=== PATIENT | male | born 1945 | race Caucasian/White ===

== ENCOUNTER 2017-11-02 20:37 | Inpatient (IN) | payer OTHER, MEDICARE ==
[~2017-11-02] VITALS: Ht 165.1 cm; Wt 65.7 kg
[~2017-11-02 20:37] MED LIST: CHOL400C PO; OMEG1CAP81 PO; SIMV20TA2 PO
[2017-11-02] MEDS ORDERED: ONDANSETRON INJ 2 MG/ML 2 ML VIAL IV STA (21:34)
[2017-11-02] MEDS ORDERED: MoRPHine SULFATE 4 MG/ML 1 ML CARP\\VIAL IV STA (21:34)
[2017-11-02 21:58] LABS: BASO % 0.1 %; BASO ABS # 0.01 K/uL (0-0.2); EOS % 0.1 %; EOS ABS # 0.01 K/uL (0-0.5); HEMATOCRIT 46.8 % (42-52); HEMOGLOBIN 16.1 g/dL (14.0-18.0); IG# 0.03 K/uL (0.00-0.02); LYMPH ABS # 0.37 K/uL (1.2-3.4); MEAN CELL VOLUME 95.9 fL (80-100); MEAN CORPUSCULAR HGB CONC 34.4 g/dl (32-36); MEAN PLATELET VOLUME 11.6 fL (7.4-10.4); MONO % 4.3 %; MONO ABS # 0.53 K/uL (0.11-0.59); NEUT % 92.3 %; NEUT ABS # 11.42 K/uL (1.4-6.5); PLATELET COUNT 163 K/uL (130-400); RED CELL DISTRIBUTION WIDTH CV 13.1 % (11.5-14.5); RED CELL DISTRIBUTION WIDTH SD 45.5 fL (36.4-46.3); WHITE BLOOD COUNT 12.37 K/uL (4.8-10.8)
[2017-11-02 22:15] LABS: ALBUMIN 4.2 gm/dl (3.4-5.0); CALCIUM 9.8 mg/dl (8.5-10.1); CREATININE 1.07 mg/dl (0.60-1.40); POTASSIUM 3.5 mmol/L (3.5-5.1)
[2017-11-02 22:18] LABS: TOTAL PROTEIN 8.1 gm/dl (6.4-8.2)
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
[2017-11-02] MEDS ORDERED: ACETAMINOPHEN 325 MG TAB PO PRN (23:00)
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
[2017-11-02 23:50] VITALS: BP 130/85; PULSE 86; TEMP 36.9; O2SAT 96; Ht 165.1 cm; Wt 65.7 kg
[2017-11-03] MEDS: MoRPHine SULFATE 4 MG/ML 1 ML CARP\\VIAL IV PRN ×2 (00:01→05:55)
[2017-11-03] MEDS: ONDANSETRON INJ 2 MG/ML 2 ML VIAL IV PRN ×3 (00:41→14:18)
[2017-11-03] MEDS: D5NSS + 20MEQ KCL 1,000 ML IV SCH ×3 (01:19→20:38)
[2017-11-03] MEDS ORDERED: INFLUENZA VIRUS QUAD VACCINE 0.5 ML SYR IM. ONE (04:00)
[2017-11-03] MEDS ORDERED: INFLUENZA ADMINISTRATION CHARGE ONE (04:00)
--- NOTE | 2017-11-03 05:11 | NUR ---
ID/A: Pt. arrived in room#357-2 at about 2350. Alert and oriented x 4. Maintaining NPO except chips and sips as ordered. VSS with SpO2 of 96% on RA. D5NSS + 20 MEQ KCL infusing at 100 ml/hr to left AC vein. C/O pain in the abdomen, rated it at 6, managed with IV medication ordered. Denies nausea and vomiting at this time. Repositions self in bed. Ambulates to the bathroom with 1 person assist. Encouraged to call for assistance, call myles within reach.
[2017-11-03 06:18] LABS: BASO % 0.1 %; BASO ABS # 0.01 K/uL (0-0.2); EOS % 0.1 %; EOS ABS # 0.01 K/uL (0-0.5); HEMATOCRIT 44.7 % (42-52); HEMOGLOBIN 15.6 g/dL (14.0-18.0); IG# 0.02 K/uL (0.00-0.02); LYMPH % 8.4 %; LYMPH ABS # 0.73 K/uL (1.2-3.4); MEAN CELL VOLUME 95.9 fL (80-100); MEAN CORPUSCULAR HEMOGLOBIN 33.5 pg (25-34); MEAN CORPUSCULAR HGB CONC 34.9 g/dl (32-36); MEAN PLATELET VOLUME 12.2 fL (7.4-10.4); MONO % 6.4 %; MONO ABS # 0.56 K/uL (0.11-0.59); NEUT % 84.8 %; NEUT ABS # 7.41 K/uL (1.4-6.5); PLATELET COUNT 158 K/uL (130-400); RED CELL DISTRIBUTION WIDTH CV 13.1 % (11.5-14.5); RED CELL DISTRIBUTION WIDTH SD 45.2 fL (36.4-46.3); WHITE BLOOD COUNT 8.74 K/uL (4.8-10.8)
[2017-11-03 06:51] LABS: CALCIUM 9.4 mg/dl (8.5-10.1); POTASSIUM 4.4 mmol/L (3.5-5.1)
[2017-11-03 07:44] VITALS: BP 132/75; PULSE 67; TEMP 36.9; O2SAT 96
[2017-11-03 08:00] VITALS: O2SAT 96
[2017-11-03] MEDS: ACETAMINOPHEN IV 100 ML IV PRN ×2 (09:24→17:43)
--- NOTE | 2017-11-03 11:15 | NUR ---
Case Management- Met with patient in room. Patient is currently staying with his daughter. Patient is from [place] he drove up here five months ago with his and have been visiting. [facility] [place] [facility]. Per patient he has been utilizing the [facility] in [place] for care and prescriptions while here. His daughter lives in a two story home with one step to enter and approx thirteen steps between floors. He is independent with adls using a can for stabilization/walking. Patient denies falls, unsteadiness, or weakness. Patient still drives. He denies needs at this time planning to return home on discharge. Patient may benefit from pt/ot to ensure safety returning home. CM following
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
[2017-11-03 16:00] VITALS: BP 109/63; PULSE 67; TEMP 36.8; O2SAT 96
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
[2017-11-03] MEDS ORDERED: NURSING VERBAL MED ORDER ONE (17:00)
[2017-11-03] MEDS ORDERED: PANTOprazole INJ 40 MG in SYRINGE 0 ML IV ONE (17:15)
--- NOTE | 2017-11-03 17:45 | Progress Note ---
Medicine Progress Note Date & Time of Visit: Nov 03, 2017 at 13:09. Subjective 72 year old male with history of small bowel obstruction, multiple abdominal surgeries, dyslipidemia, presenting with abdominal pain. Found to have a partial SBO vs ileus on workup. Pt reports vomiting once this morning and has some persistent nausea and heartburn. Otherwise, he denies any symptoms. He is ambulatory. Objective Last 8 Hrs Date Time Temp Pulse Resp B/P (MAP) Pulse Ox O2 Delivery O2 Flow Rate FiO2 11/03/17 07:44 36.9 67 18 132/75 (94) 96 Room Air Physical Exam: GEN: WNWD, in no acute distress, alert and appropriate HEENT: NC/AT, normal sclerae, MMM CARDIO: reg rate, S1/2 heard without m/g/r LUNGS: CTA bilaterally, no crackles, rales or wheezes, good diaphragmatic excursion ABD: soft, non-tender, non-distended, no rebound or guarding, +BS, multiple scars with multiple incisional hernias. EXTREMITY: RP and DP palpable 2+ bilat, no LE swelling or edema, extremities are warm and well-perfused NEURO: CN 2-12 grossly intact MUSC: 5/5 strength throughout, no focal deficits SKIN: warm and dry Laboratory Results: 11/03/17 05:18 Red Blood Count 4.66, Mean Corpuscular Volume 95.9, Mean Corpuscular Hemoglobin 33.5, Mean Corpuscular Hemoglobin Concent 34.9, Mean Platelet Volume 12.2, Neutrophils (%) (Auto) 84.8, Lymphocytes (%) (Auto) 8.4, Monocytes (%) (Auto) 6.4, Eosinophils (%) (Auto) 0.1, Basophils (%) (Auto) 0.1, Neutrophils # (Auto) 7.41, Lymphocytes # (Auto) 0.73, Monocytes # (Auto) 0.56, Eosinophils # (Auto) 0.01, Basophils # (Auto) 0.01 11/03/17 05:18 Test 11/02/17 19:23 11/02/17 19:50 11/03/17 05:18 Urine Color DK YELLOW Urine Appearance CLOUDY (CLEAR) Urine pH 5.0 (4.5-7.5) Urine Specific [place] 1.031 (1.000-1.030) Urine Protein TRACE (NEG) Urine Glucose (UA) NEG (NEG) Urine Ketones 1+ (NEG) Urine Occult Blood NEG (NEG) Urine Nitrite NEG (NEG) Urine Bilirubin NEG (NEG) Urine Urobilinogen NEG (NEG) Urine Leukocyte Esterase NEG (NEG) Urine WBC (Auto) 1-5 /hpf (0-5) Urine RBC (Auto) 0-4 /hpf (0-4) Urine Hyaline Casts (Auto) 10-30 /lpf (0-5) Urine Epithelial Cells (Auto) 20-30 /lpf (0-5) Urine Bacteria (Auto) NEG (NEG) Urine Crystals CALCIUM OXALATE (NONE Total Bilirubin 2.1 mg/dl (0.2-1) Aspartate Amino Transf (AST/SGOT) 22 U/L (15-37) Alanine Aminotransferase (ALT/SGPT) 23 U/L (12-78) Alkaline Phosphatase 97 U/L (45-117) Total Protein 8.1 gm/dl (6.4-8.2) Albumin 4.2 gm/dl (3.4-5.0) Globulin 3.9 gm/dl (2.5-4.0) Albumin/Globulin Ratio 1.1 (0.9-2) Lipase 105 U/L (73-393) White Blood Count 8.74 K/uL (4.8-10.8) Red Blood Count 4.66 M/uL (4.7-6.1) Hemoglobin 15.6 g/dL (14.0-18.0) Hematocrit 44.7 % (42-52) Mean Corpuscular Volume 95.9 fL (80-100) Mean Corpuscular Hemoglobin 33.5 pg (25-34) Mean Corpuscular Hemoglobin Concent 34.9 g/dl (32-36) Platelet Count 158 K/uL (130-400) Mean Platelet Volume 12.2 fL (7.4-10.4) Neutrophils (%) (Auto) 84.8 % Lymphocytes (%) (Auto) 8.4 % Monocytes (%) (Auto) 6.4 % Eosinophils (%) (Auto) 0.1 % Basophils (%) (Auto) 0.1 % Neutrophils # (Auto) 7.41 K/uL (1.4-6.5) Lymphocytes # (Auto) 0.73 K/uL (1.2-3.4) Monocytes # (Auto) 0.56 K/uL (0.11-0.59) Eosinophils # (Auto) 0.01 K/uL (0-0.5) Basophils # (Auto) 0.01 K/uL (0-0.2) RDW Standard Deviation 45.2 fL (36.4-46.3) RDW Coefficient of Variation 13.1 % (11.5-14.5) Immature Granulocyte % (Auto) 0.2 % Immature Granulocyte # (Auto) 0.02 K/uL (0.00-0.02) Anion Gap 5.0 mmol/L (3-11) Est Creatinine Clear Calc Drug Dose 58.1 ml/min Estimated GFR () 86.8 Estimated GFR (Non- 74.9 BUN/Creatinine Ratio 19.2 (10-20) Calcium Level 9.4 mg/dl (8.5-10.1) Magnesium Level 2.1 mg/dl (1.8-2.4) Chemistry Specimen Hemolysis Last 24 Hours Test 11/02/17 19:23 11/02/17 19:50 11/03/17 05:18 Urine Color DK YELLOW Urine Appearance CLOUDY Urine pH 5.0 Urine Specific [place] 1.031 Urine Protein TRACE Urine Glucose (UA) NEG Urine Ketones 1+ Urine Occult Blood NEG Urine Nitrite NEG Urine Bilirubin NEG Urine Urobilinogen NEG Urine Leukocyte Esterase NEG Urine WBC (Auto) 1-5 /hpf Urine RBC (Auto) 0-4 /hpf Urine Hyaline Casts (Auto) 10-30 /lpf Urine Epithelial Cells (Auto) 20-30 /lpf Urine Bacteria (Auto) NEG Urine Crystals CALCIUM OXALATE White Blood Count 12.37 K/uL 8.74 K/uL Red Blood Count 4.88 M/uL 4.66 M/uL Hemoglobin 16.1 g/dL 15.6 g/dL Hematocrit 46.8 % 44.7 % Mean Corpuscular Volume 95.9 fL 95.9 fL Mean Corpuscular Hemoglobin 33.0 pg 33.5 pg Mean Corpuscular Hemoglobin Concent 34.4 g/dl 34.9 g/dl Platelet Count 163 K/uL 158 K/uL Mean Platelet Volume 11.6 fL 12.2 fL Neutrophils (%) (Auto) 92.3 % 84.8 % Lymphocytes (%) (Auto) 3.0 % 8.4 % Monocytes (%) (Auto) 4.3 % 6.4 % Eosinophils (%) (Auto) 0.1 % 0.1 % Basophils (%) (Auto) 0.1 % 0.1 % Neutrophils # (Auto) 11.42 K/uL 7.41 K/uL Lymphocytes # (Auto) 0.37 K/uL 0.73 K/uL Monocytes # (Auto) 0.53 K/uL 0.56 K/uL Eosinophils # (Auto) 0.01 K/uL 0.01 K/uL Basophils # (Auto) 0.01 K/uL 0.01 K/uL RDW Standard Deviation 45.5 fL 45.2 fL RDW Coefficient of Variation 13.1 % 13.1 % Immature Granulocyte % (Auto) 0.2 % 0.2 % Immature Granulocyte # (Auto) 0.03 K/uL 0.02 K/uL Sodium Level 137 mmol/L 138 mmol/L Potassium Level 3.5 mmol/L 4.4 mmol/L Chloride Level 99 mmol/L 102 mmol/L Carbon Dioxide Level 32 mmol/L 32 mmol/L Anion Gap 5.0 mmol/L 5.0 mmol/L Blood Urea Nitrogen 20 mg/dl 19 mg/dl Creatinine 1.07 mg/dl 1.00 mg/dl Est Creatinine Clear Calc Drug Dose 54.3 ml/min 58.1 ml/min Estimated GFR () 80.0 86.8 Estimated GFR (Non- 69.0 74.9 BUN/Creatinine Ratio 18.4 19.2 Random Glucose 131 mg/dl 140 mg/dl Calcium Level 9.8 mg/dl 9.4 mg/dl Magnesium Level 2.3 mg/dl 2.1 mg/dl Total Bilirubin 2.1 mg/dl Aspartate Amino Transf (AST/SGOT) 22 U/L Alanine Aminotransferase (ALT/SGPT) 23 U/L Alkaline Phosphatase 97 U/L Total Protein 8.1 gm/dl Albumin 4.2 gm/dl Globulin 3.9 gm/dl Albumin/Globulin Ratio 1.1 Lipase 105 U/L Chemistry Specimen Hemolysis Assessment & Plan 72 year old male with history of small bowel obstruction, multiple abdominal surgeries, dyslipidemia, presenting with abdominal pain. Found to have a partial SBO vs ileus on workup. Pt reports vomiting once this morning and has some persistent nausea and heartburn. Otherwise, he denies any symptoms. He is ambulatory. 1 Abdominal pain 2.2 partial SBO with h/o adhesions from multiple abdominal surgeries in the past. Cont conservative management, NPO, IVF, scheuduling his Zofran to stay ahead of the nausea. No pain reported but PRN morphine available. Apprec surgery input. NGT placement if he decompensates overnight. 2. GERD-on omeprazole at home and is having some reflux-ordered Protonix 40 IV daily with first dose now. DVT proph-Lovenox Full Code LIVES WITH DAUGHTER WHILE IN [place] ALSO LIVES IN [place], [place], FOLLOWS UP WITH [facility] AND [facility] [place] Pranav Lerma Hospitalist Consultants: [facility] Current Inpatient Medications: Current Inpatient Medications Medications (Trade) Dose Ordered Sig/Ilia Route Start Time Stop Time Status Last Admin Dose Admin Potassium Chloride/Dextrose/ Sod Cl 1,000 ml @ 100 mls/hr Q10H IV 11/03/17 00:30 12/03/17 00:29 11/03/17 09:23 100 MLS/HR Morphine Sulfate (MoRPHine SULFATE INJ) 3 mg Q6H PRN IV 11/02/17 23:00 11/16/17 22:59 11/03/17 05:55 3 MG Ondansetron HCl (Zofran Inj) 4 mg Q6H PRN IV 11/02/17 23:00 12/02/17 22:59 11/03/17 08:06 4 MG Acetaminophen 100 ml @ 400 mls/hr Q8H PRN IV 11/03/17 09:15 12/03/17 09:14 11/03/17 09:24 400 MLS/HR
[2017-11-03] MEDS: ONDANSETRON INJ 2 MG/ML 2 ML VIAL IV SCH (20:34)
[2017-11-03 23:25] VITALS: BP 168/84; PULSE 66; TEMP 36.9; O2SAT 94
[2017-11-04] MEDS: MoRPHine SULFATE 4 MG/ML 1 ML CARP\\VIAL IV PRN ×3 (01:51→15:35)
[2017-11-04] MEDS: ONDANSETRON INJ 2 MG/ML 2 ML VIAL IV SCH ×4 (01:51→20:25)
--- NOTE | 2017-11-04 04:27 | NUR ---
ID: pt is alert and oriented x4. Lungs clear on RA. NG patent draining brown colored liquid. Voiding in urinal without difficulty. Pain controlled with IV pain medication. IV fluids infusing as per order. Plan for discharge is uncertain at this time.
[2017-11-04] MEDS: D5NSS + 20MEQ KCL 1,000 ML IV SCH ×2 (06:12→16:09)
[2017-11-04 06:24] LABS: INR 1.1 (0.9-1.1)
[2017-11-04 06:54] LABS: CALCIUM 8.7 mg/dl (8.5-10.1); CREATININE 0.95 mg/dl (0.60-1.40); POTASSIUM 3.9 mmol/L (3.5-5.1)
[2017-11-04 07:22] VITALS: BP 162/92; PULSE 65; TEMP 36.6; O2SAT 96
[2017-11-04] MEDS: PANTOprazole INJ 40 MG in SYRINGE 0 ML IV SCH (07:36)
--- NOTE | 2017-11-04 08:40 | Surgery Progress Note ---
Surgery Progress Note Date of Service Nov 04, 2017. Subjective + feeling well last nigyht pt had NG tube in, now pt feels better, NG tube- 700ml, not pass gas yet, Objective Vital Signs: Date Time Temp Pulse Resp B/P (MAP) Pulse Ox O2 Delivery O2 Flow Rate FiO2 11/04/17 07:22 36.6 65 12 162/92 (115) 96 Room Air 11/04/17 01:02 Room Air 11/03/17 23:25 36.9 66 16 168/84 (112) 94 Room Air 11/03/17 16:00 96 Room Air 11/03/17 16:00 36.8 67 18 109/63 (78) 96 Room Air General Appearance: WD/WN, no apparent distress Head: normocephalic Neck: supple, no JVD Respiratory/Chest: chest non-tender, lungs clear, normal breath sounds, no respiratory distress Cardiovascular: regular rate, rhythm, no edema, no gallop, no JVD, no murmur Abdomen: normal bowel sounds, non tender, non distended, soft, no organomegaly Extremities: normal range of motion, non-tender, normal inspection Laboratory Results: Results Past 24 Hours Test 11/04/17 05:44 Range/Units Prothrombin Time 11.3 9.0-12.0 SECONDS Prothromb Time International Ratio 1.1 0.9-1.1 Sodium Level 139 136-145 mmol/L Potassium Level 3.9 3.5-5.1 mmol/L Chloride Level 106 98-107 mmol/L Carbon Dioxide Level 30 21-32 mmol/L Anion Gap 3.0 3-11 mmol/L Blood Urea Nitrogen 21 7-18 mg/dl Creatinine 0.95 0.60-1.40 mg/dl Est Creatinine Clear Calc Drug Dose 61.1 ml/min Estimated GFR () 92.3 Estimated GFR (Non- 79.7 BUN/Creatinine Ratio 21.8 10-20 Random Glucose 109 70-99 mg/dl Calcium Level 8.7 8.5-10.1 mg/dl Magnesium Level 2.0 1.8-2.4 mg/dl Assessment & Plan pt is doing better, continue treatment, will F/U
[2017-11-04] MEDS: ENOXAPARIN 40 MG/0.4 ML SYR SQ SCH (09:24)
--- NOTE | 2017-11-04 11:37 | NUR ---
Reviewed chart. Pt is here visiting daughter. He normally lives in [place] with his . Pt is independent with ADL's. He plans to return to his daughter's home at discharge. Case Management will follow.
[2017-11-04 15:12] VITALS: BP 158/84; PULSE 80; TEMP 37; O2SAT 95
--- NOTE | 2017-11-04 17:28 | Progress Note ---
Subjective Date of Service: Nov 04, 2017. Subjective Pt evaluation today including: conversation w/ patient, physical exam, lab review, review of studies, review of inpatient medication list Saw/examined the patient in room 357 NG tube in place abdominal place improved nausea/vomiting improved no diarrhea Problem List Medical Problems: (1) Small bowel obstruction Status: Acute Review of Systems Constitutional: No fever, No chills Respiratory: No shortness of breath Cardiac: No chest pain Abdomen: + pain, + nausea, + vomiting, No diarrhea, No constipation, No GI bleeding Medications Current Inpatient Medications Medications (Trade) Dose Ordered Sig/Ilia Route Start Time Stop Time Status Last Admin Dose Admin Potassium Chloride/Dextrose/ Sod Cl 1,000 ml @ 100 mls/hr Q10H IV 11/03/17 00:30 12/03/17 00:29 11/04/17 16:09 100 MLS/HR Morphine Sulfate (MoRPHine SULFATE INJ) 3 mg Q6H PRN IV 11/02/17 23:00 11/16/17 22:59 11/04/17 15:35 3 MG Acetaminophen 100 ml @ 400 mls/hr Q8H PRN IV 11/03/17 09:15 12/03/17 09:14 11/03/17 17:43 400 MLS/HR Ondansetron HCl (Zofran Inj) 4 mg Q6H IV 11/03/17 20:00 12/02/17 19:59 11/04/17 14:13 4 MG Pantoprazole Sodium 40 mg/ Syringe 10 ml @ 5 mls/min DAILY@0800 IV 11/04/17 08:00 12/04/17 07:59 11/04/17 07:36 5 MLS/MIN Enoxaparin Sodium (Lovenox Inj) 40 mg QAM SQ 11/04/17 09:00 12/04/17 08:59 11/04/17 09:24 40 MG Objective Vital Signs Date Time Temp Pulse Resp B/P (MAP) Pulse Ox O2 Delivery O2 Flow Rate FiO2 11/04/17 15:12 37.0 80 18 158/84 (108) 95 Room Air 11/04/17 07:23 Room Air 11/04/17 07:22 36.6 65 12 162/92 (115) 96 Room Air 11/04/17 01:02 Room Air 1/1/18 23:25 36.9 66 16 168/84 (112) 94 Room Air Physical Exam General Appearance: no apparent distress, + pertinent finding (NGT in place) Respiratory/Chest: no respiratory distress, no accessory muscle use Abdomen: normal bowel sounds, non tender, soft Laboratory Results Last 24 Hours Test 11/04/17 05:44 Prothrombin Time 11.3 SECONDS Prothromb Time International Ratio 1.1 Sodium Level 139 mmol/L Potassium Level 3.9 mmol/L Chloride Level 106 mmol/L Carbon Dioxide Level 30 mmol/L Anion Gap 3.0 mmol/L Blood Urea Nitrogen 21 mg/dl Creatinine 0.95 mg/dl Est Creatinine Clear Calc Drug Dose 61.1 ml/min Estimated GFR () 92.3 Estimated GFR (Non- 79.7 BUN/Creatinine Ratio 21.8 Random Glucose 109 mg/dl Calcium Level 8.7 mg/dl Magnesium Level 2.0 mg/dl Assessment and Plan This is a 72 year old male with a PMH of recurrent SBO, multiple abdominal surgeries, HLD presents with nausea/vomiting and found to have partial SBO Partial SBO Abdominal Radiograph suggests partial SBO conservative management NGT, NPO, IVFs added once passing flatus, will remove NGT appreciate general surgery input DVT ppx Lovenox FULL CODE
[2017-11-04] MEDS: ACETAMINOPHEN IV 100 ML IV PRN (19:32)
[2017-11-04 23:03] VITALS: BP 132/67; PULSE 53; TEMP 36.7; O2SAT 97
[2017-11-05] VITALS (7 sets, daily range): BP systolic 125–146; BP diastolic 64–82; PULSE 50–65; TEMP 36.6–36.9; O2SAT 95–98
--- NOTE | 2017-11-05 00:37 | NUR ---
ID: Pt is alert and oriented x4. Lungs clear on RA. Tolerating sips and chips. NG patent draining green colored drainage. Pain controlled with IV pain medication. Independent OOB. Voiding in the urinal without and difficulty.
[2017-11-05] MEDS: D5NSS + 20MEQ KCL 1,000 ML IV SCH ×3 (01:57→22:08)
[2017-11-05] MEDS: ONDANSETRON INJ 2 MG/ML 2 ML VIAL IV SCH ×3 (01:57→14:36)
[2017-11-05 08:20] LABS: HEMATOCRIT 40.5 % (42-52); HEMOGLOBIN 13.6 g/dL (14.0-18.0); MEAN CELL VOLUME 97.8 fL (80-100); MEAN CORPUSCULAR HEMOGLOBIN 32.9 pg (25-34); MEAN CORPUSCULAR HGB CONC 33.6 g/dl (32-36); MEAN PLATELET VOLUME 11.6 fL (7.4-10.4); PLATELET COUNT 127 K/uL (130-400); RED CELL DISTRIBUTION WIDTH CV 13.4 % (11.5-14.5); RED CELL DISTRIBUTION WIDTH SD 47.9 fL (36.4-46.3); WHITE BLOOD COUNT 4.77 K/uL (4.8-10.8)
[2017-11-05] MEDS: PANTOprazole INJ 40 MG in SYRINGE 0 ML IV SCH (08:37)
[2017-11-05] MEDS: ACETAMINOPHEN IV 100 ML IV PRN ×2 (08:38→17:36)
[2017-11-05] MEDS: ENOXAPARIN 40 MG/0.4 ML SYR SQ SCH (08:39)
[2017-11-05 09:19] LABS: CALCIUM 8.4 mg/dl (8.5-10.1); CREATININE 0.89 mg/dl (0.60-1.40); POTASSIUM 3.8 mmol/L (3.5-5.1)
--- NOTE | 2017-11-05 09:44 | Surgery Progress Note ---
Surgery Progress Note Date of Service Nov 05, 2017. Subjective Post OP Day: HD # 3 + feeling well, + ambulating, + flatus, + pain controlled (with IV Tylenol), No chest pain, No SOB, No bowel movement, No nausea, No vomiting Objective Vital Signs: Date Time Temp Pulse Resp B/P (MAP) Pulse Ox O2 Delivery O2 Flow Rate FiO2 11/05/17 09:00 95 Room Air 11/05/17 08:45 Room Air 11/05/17 07:58 36.8 58 18 140/82 (101) 95 Room Air 11/05/17 07:10 36.8 65 18 146/81 (102) 96 Room Air 11/05/17 00:00 Room Air 11/04/17 23:03 36.7 53 18 132/67 (88) 97 Room Air 11/04/17 20:16 Room Air 11/04/17 15:12 37.0 80 18 158/84 (108) 95 Room Air Physical Exam: nasogastric drainage (dark brown output) General Appearance: WD/WN, no apparent distress Head: normocephalic, atraumatic Neck: trachea midline Respiratory/Chest: lungs clear, normal breath sounds, no respiratory distress, no accessory muscle use Cardiovascular: regular rate, rhythm, no murmur Abdomen: normal bowel sounds, non distended, soft, no organomegaly, no pulsatile mass, + tenderness (mild generalized tenderness, no guarding, rigidity , or peritonitis) Laboratory Results: Results Past 24 Hours Test 11/05/17 07:24 Range/Units White Blood Count 4.77 4.8-10.8 K/uL Red Blood Count 4.14 4.7-6.1 M/uL Hemoglobin 13.6 14.0-18.0 g/dL Hematocrit 40.5 42-52 % Mean Corpuscular Volume 97.8 80-100 fL Mean Corpuscular Hemoglobin 32.9 25-34 pg Mean Corpuscular Hemoglobin Concent 33.6 32-36 g/dl RDW Standard Deviation 47.9 36.4-46.3 fL RDW Coefficient of Variation 13.4 11.5-14.5 % Platelet Count 127 130-400 K/uL Mean Platelet Volume 11.6 7.4-10.4 fL Sodium Level 139 136-145 mmol/L Potassium Level 3.8 3.5-5.1 mmol/L Chloride Level 107 98-107 mmol/L Carbon Dioxide Level 28 21-32 mmol/L Anion Gap 4.0 3-11 mmol/L Blood Urea Nitrogen 13 7-18 mg/dl Creatinine 0.89 0.60-1.40 mg/dl Est Creatinine Clear Calc Drug Dose 65.3 ml/min Estimated GFR () 99.0 Estimated GFR (Non- 85.4 BUN/Creatinine Ratio 14.9 10-20 Random Glucose 84 70-99 mg/dl Calcium Level 8.4 8.5-10.1 mg/dl Magnesium Level 1.9 1.8-2.4 mg/dl Assessment & Plan Partial Small bowel obstruction- resolving - passing flatus, + bowel movement after evaluation this am - vitals stable - no leukocytosis - minimal abdominal pain Plan: Discontinue NGT Start clear liquids advised patient to go slow, advance as tolerated Continue current pain management Continue IV zofran as needed encouraged continued ambulation Dr. Caban has seen patient , agrees with above
--- NOTE | 2017-11-05 12:59 | NUR ---
Pt screened for NPO/Clears > 3 days. Process Plan entered. Noted NG tube discontinued and Pt started on clear liquids. When able, continue to advance diet from clear liquids. Will continue to monitor Pt's ability to have diet advanced and provide recommendations, as needed.
[2017-11-05] MEDS ORDERED: ONDANSETRON INJ 2 MG/ML 2 ML VIAL IV PRN (14:45)
[2017-11-05] MEDS ORDERED: NURSING VERBAL MED ORDER ONE (14:45)
--- NOTE | 2017-11-05 15:36 | NUR ---
Reviewed chart. Spoke with Pt. He plans to return to his daughter's house at discharge. He is independent with ADL's. Pt denies d/c needs at this time. Case management will follow.
--- NOTE | 2017-11-05 16:27 | Progress Note ---
Subjective Date of Service: Nov 05, 2017. Subjective Pt evaluation today including: conversation w/ patient, physical exam, lab review, review of studies, review of inpatient medication list Saw/examined the patient in room 357 He is doing well, passing gas, +BM NGT removed tolerating clears Problem List Medical Problems: (1) Small bowel obstruction Status: Acute Review of Systems Constitutional: No fever, No chills Respiratory: No shortness of breath Cardiac: No chest pain Abdomen: No pain, No nausea, No vomiting, No diarrhea Medications Current Inpatient Medications Medications (Trade) Dose Ordered Sig/Ilia Route Start Time Stop Time Status Last Admin Dose Admin Potassium Chloride/Dextrose/ Sod Cl 1,000 ml @ 100 mls/hr Q10H IV 11/03/17 00:30 12/03/17 00:29 11/05/17 12:11 100 MLS/HR Morphine Sulfate (MoRPHine SULFATE INJ) 3 mg Q6H PRN IV 11/02/17 23:00 11/16/17 22:59 11/04/17 15:35 3 MG Acetaminophen 100 ml @ 400 mls/hr Q8H PRN IV 11/03/17 09:15 12/03/17 09:14 11/05/17 08:38 400 MLS/HR Pantoprazole Sodium 40 mg/ Syringe 10 ml @ 5 mls/min DAILY@0800 IV 11/04/17 08:00 12/04/17 07:59 11/05/17 08:37 5 MLS/MIN Enoxaparin Sodium (Lovenox Inj) 40 mg QAM SQ 11/04/17 09:00 12/04/17 08:59 11/05/17 08:39 40 MG Ondansetron HCl (Zofran Inj) 4 mg Q6 PRN IV 11/05/17 14:45 12/05/17 14:44 Objective Vital Signs Date Time Temp Pulse Resp B/P (MAP) Pulse Ox O2 Delivery O2 Flow Rate FiO2 11/05/17 15:15 Room Air 11/05/17 15:10 36.6 57 16 129/81 (97) 97 Room Air 11/05/17 13:53 36.9 54 18 128/76 (93) 98 Room Air 11/05/17 12:13 36.9 54 18 126/73 (90) 98 Room Air 1/3/18 09:00 95 Room Air 11/05/17 08:45 Room Air 11/05/17 07:58 36.8 58 18 140/82 (101) 95 Room Air 11/05/17 07:10 36.8 65 18 146/81 (102) 96 Room Air 11/05/17 00:00 Room Air 11/04/17 23:03 36.7 53 18 132/67 (88) 97 Room Air 11/04/17 20:16 Room Air Physical Exam General Appearance: no apparent distress Respiratory/Chest: no respiratory distress, no accessory muscle use Abdomen: normal bowel sounds, non tender, soft Laboratory Results Last 24 Hours Test 11/05/17 07:24 White Blood Count 4.77 K/uL Red Blood Count 4.14 M/uL Hemoglobin 13.6 g/dL Hematocrit 40.5 % Mean Corpuscular Volume 97.8 fL Mean Corpuscular Hemoglobin 32.9 pg Mean Corpuscular Hemoglobin Concent 33.6 g/dl RDW Standard Deviation 47.9 fL RDW Coefficient of Variation 13.4 % Platelet Count 127 K/uL Mean Platelet Volume 11.6 fL Sodium Level 139 mmol/L Potassium Level 3.8 mmol/L Chloride Level 107 mmol/L Carbon Dioxide Level 28 mmol/L Anion Gap 4.0 mmol/L Blood Urea Nitrogen 13 mg/dl Creatinine 0.89 mg/dl Est Creatinine Clear Calc Drug Dose 65.3 ml/min Estimated GFR () 99.0 Estimated GFR (Non- 85.4 BUN/Creatinine Ratio 14.9 Random Glucose 84 mg/dl Calcium Level 8.4 mg/dl Magnesium Level 1.9 mg/dl Assessment and Plan This is a 72 year old male with a PMH of recurrent SBO, multiple abdominal surgeries, HLD presents with nausea/vomiting and found to have partial SBO Partial SBO 1/3 NGT removed +BM, +flatus clears will advance in AM appreciate general surgery input 1/2 Abdominal Radiograph suggests partial SBO conservative management NGT, NPO, IVFs added once passing flatus, will remove NGT appreciate general surgery input DVT ppx Lovenox FULL CODE
--- NOTE | 2017-11-06 03:12 | NUR ---
ID NOTE: Alert and oriented x4. Tolerating a clear liquid diet. Ambulates independently. IV fluids infusing as ordered. Voiding without difficulty. Pain controlled with IV medication. Discharge plans uncertain at this time.
[2017-11-06 07:27] VITALS: BP 139/82; PULSE 57; TEMP 36.8; O2SAT 96
[2017-11-06 07:45] VITALS: O2SAT 96
[2017-11-06] MEDS: D5NSS + 20MEQ KCL 1,000 ML IV SCH (07:45)
[2017-11-06] MEDS: PANTOprazole INJ 40 MG in SYRINGE 0 ML IV SCH (07:45)
[2017-11-06 07:46] LABS: CREATININE 0.82 mg/dl (0.60-1.40); POTASSIUM 3.7 mmol/L (3.5-5.1)
[2017-11-06] MEDS: ACETAMINOPHEN IV 100 ML IV PRN ×2 (07:46→16:00)
[2017-11-06] MEDS: ENOXAPARIN 40 MG/0.4 ML SYR SQ SCH (08:43)
--- NOTE | 2017-11-06 09:36 | Surgery Progress Note ---
Surgery Progress Note Date of Service Nov 06, 2017. Subjective Post OP Day: HD # 4 + feeling well, + ambulating, + bowel movement, + flatus, + pain controlled, + diet (Tolerated clear liquids), No complaints, No nausea, No vomiting Objective Vital Signs: Date Time Temp Pulse Resp B/P (MAP) Pulse Ox O2 Delivery O2 Flow Rate FiO2 11/06/17 07:27 36.8 57 16 139/82 (101) 96 Room Air 11/05/17 23:30 Room Air 11/05/17 22:53 36.8 50 16 125/64 (84) 96 Room Air 11/05/17 15:15 Room Air 11/05/17 15:10 36.6 57 16 129/81 (97) 97 Room Air 11/05/17 13:53 36.9 54 18 128/76 (93) 98 Room Air 11/05/17 12:13 36.9 54 18 126/73 (90) 98 Room Air General Appearance: WD/WN, no apparent distress Head: normocephalic, atraumatic Neck: trachea midline Respiratory/Chest: no respiratory distress, no accessory muscle use Laboratory Results: Results Past 24 Hours Test 11/06/17 06:57 Range/Units Sodium Level 141 136-145 mmol/L Potassium Level 3.7 3.5-5.1 mmol/L Chloride Level 109 98-107 mmol/L Carbon Dioxide Level 29 21-32 mmol/L Anion Gap 3.0 3-11 mmol/L Blood Urea Nitrogen 6 7-18 mg/dl Creatinine 0.82 0.60-1.40 mg/dl Est Creatinine Clear Calc Drug Dose 70.8 ml/min Estimated GFR () 102.4 Estimated GFR (Non- 88.3 BUN/Creatinine Ratio 7.3 10-20 Random Glucose 97 70-99 mg/dl Calcium Level 9.0 8.5-10.1 mg/dl Magnesium Level 2.0 1.8-2.4 mg/dl Assessment & Plan Partial Small bowel obstruction- resolved - passing flatus, + bowel movement - vitals stable - minimal abdominal pain Plan: Advance diet to full liquids this am and then as tolerated Continue current pain management as needed Continue IV zofran as needed encouraged continued ambulation From surgical standpoint okay to discharge home once tolerates full liquids. May follow up with Dr. Caban in 2 weeks if still in the area. Our services signing off thank you for involving us in the care of this patient. Dr. Caban has seen patient , agrees with above
--- NOTE | 2017-11-06 10:17 | Progress Note ---
Subjective Date of Service: Nov 06, 2017. Subjective Pt evaluation today including: conversation w/ patient, physical exam, lab review, review of studies, conversation w/ career development consultant, review of inpatient medication list Saw/examined the patient in room 357 He is doing well today, no abdominal pain, passing gas, +BM no fevers/chills, no nausea/vomiting/diarrhea Problem List Medical Problems: (1) Small bowel obstruction Status: Acute Review of Systems Constitutional: No fever, No chills Respiratory: No shortness of breath Cardiac: No chest pain Abdomen: No pain, No nausea, No vomiting, No diarrhea Heme: No abnormal bleeding/bruising Medications Current Inpatient Medications Medications (Trade) Dose Ordered Sig/Ilia Route Start Time Stop Time Status Last Admin Dose Admin Potassium Chloride/Dextrose/ Sod Cl 1,000 ml @ 100 mls/hr Q10H IV 11/03/17 00:30 12/03/17 00:29 11/06/17 07:45 100 MLS/HR Morphine Sulfate (MoRPHine SULFATE INJ) 3 mg Q6H PRN IV 11/02/17 23:00 11/16/17 22:59 11/04/17 15:35 3 MG Acetaminophen 100 ml @ 400 mls/hr Q8H PRN IV 11/03/17 09:15 12/03/17 09:14 11/06/17 07:46 400 MLS/HR Pantoprazole Sodium 40 mg/ Syringe 10 ml @ 5 mls/min DAILY@0800 IV 11/04/17 08:00 12/04/17 07:59 11/06/17 07:45 5 MLS/MIN Enoxaparin Sodium (Lovenox Inj) 40 mg QAM SQ 11/04/17 09:00 12/04/17 08:59 11/06/17 08:43 40 MG Ondansetron HCl (Zofran Inj) 4 mg Q6 PRN IV 11/05/17 14:45 12/05/17 14:44 Objective Vital Signs Date Time Temp Pulse Resp B/P (MAP) Pulse Ox O2 Delivery O2 Flow Rate FiO2 11/06/17 07:45 96 Room Air 11/06/17 07:27 36.8 57 16 139/82 (101) 96 Room Air 11/05/17 23:30 Room Air 11/05/17 22:53 36.8 50 16 125/64 (84) 96 Room Air 11/05/17 15:15 Room Air 11/05/17 15:10 36.6 57 16 129/81 (97) 97 Room Air 11/05/17 13:53 36.9 54 18 128/76 (93) 98 Room Air 11/05/17 12:13 36.9 54 18 126/73 (90) 98 Room Air Physical Exam General Appearance: no apparent distress Abdomen: normal bowel sounds, non tender, soft Laboratory Results Last 24 Hours Test 11/06/17 06:57 Sodium Level 141 mmol/L Potassium Level 3.7 mmol/L Chloride Level 109 mmol/L Carbon Dioxide Level 29 mmol/L Anion Gap 3.0 mmol/L Blood Urea Nitrogen 6 mg/dl Creatinine 0.82 mg/dl Est Creatinine Clear Calc Drug Dose 70.8 ml/min Estimated GFR () 102.4 Estimated GFR (Non- 88.3 BUN/Creatinine Ratio 7.3 Random Glucose 97 mg/dl Calcium Level 9.0 mg/dl Magnesium Level 2.0 mg/dl Assessment and Plan This is a 72 year old male with a PMH of recurrent SBO, multiple abdominal surgeries, HLD presents with nausea/vomiting and found to have partial SBO Partial SBO / NGT removed, tolerating clears diet advanced to full liquid d/c once tolerating full liquids after lunch outpatient f/u in 2 weeks with general surgery / NGT removed +BM, +flatus clears will advance in AM appreciate general surgery input 1/2 Abdominal Radiograph suggests partial SBO conservative management NGT, NPO, IVFs added once passing flatus, will remove NGT appreciate general surgery input DVT ppx Lovenox FULL CODE
--- NOTE | 2017-11-06 10:19 | Discharge Instructions ---
Discharge Instructions Date of Service Nov 06, 2017. Admission Reason for Admission: Partial Small Bowel Obstruction Discharge Discharge Diagnosis / Problem: Partial Small Bowel Obstruction - resolved Discharge Goals Goal(s): Decrease discomfort, Improve function, Diagnostic testing, Therapeutic intervention Activity Recommendations Activity Limitations: resume your previous activity . Instructions / Follow-Up Instructions / Follow-Up Please follow-up with Dr. Caban (general surgery) in 2 weeks Follow-up with your primary care as scheduled Current Hospital Diet Patient's current hospital diet: Full Liquid Diet Discharge Diet Recommended Diet: Low Fiber Diet Pending Studies Studies pending at discharge: no Medical Emergencies . Who to Call and When: Medical Emergencies: If at any time you feel your situation is an emergency, please call 911 immediately. . Non-Emergent Contact Non-Emergency issues call your: Primary Care Provider, Surgeon . . "Provider Documentation" section prepared by Trinidad Ulrich. . VTE Core Measure Inpt VTE Proph given/why not?: Enoxaparin (Lovenox)SQ, SCD's
--- NOTE | 2017-11-06 10:20 | Discharge Summary ---
Discharge Summary Date of Service Nov 06, 2017. Discharge Summary Admission Date: Nov 02, 2017 at 22:53 Discharge Date: Nov 06, 2017 Discharge Disposition: Home Principal Diagnosis: Partial Small Bowel Obstruction Consultations: Gen Surg-Arsh Medication Reconciliation Continued Medications: Cholecalciferol (Vitamin D3 400) 400 Unit Cap 400 MG PO DAILY Simvastatin (Zocor) 20 Mg Tab 10 MG PO QPM, TAB Admission Information HPI (per Admitting provider): 72 year old male with history of small bowel obstruction, multiple abdominal surgeries, dyslipidemia, presenting with abdominal pain starting this evening. Patient states he was doing fine until this evening while watching TV when he suddenly developed right sided abdominal pain, pressure, which then moved to involve his whole abdomen. He had 2 episodes of vomiting, non bloody, bilious fluid at home. Denies fever/chills, chest pain, dyspnea. As he is familiar with bowel obstruction symptoms, patient was brought to the ER. At the ER, KUB xray showed possible ileus vs. partial small bowel obstruction. He was given Morphine and Zofran IV. On exam, patient seen resting, comfortable, states he is feeling somewhat improved compared to admission. Denies any other active symptom. Physical Exam (per Admitting): General Appearance: WD/WN, no apparent distress Head: normocephalic, atraumatic Eyes: normal inspection, PERRL, EOMI, sclerae normal ENT: normal ENT inspection, hearing grossly normal, pharynx normal Neck: supple, no adenopathy, thyroid normal, no JVD, trachea midline Respiratory/Chest: chest non-tender, lungs clear, normal breath sounds, no respiratory distress, no accessory muscle use Cardiovascular: regular rate, rhythm, no edema, no JVD, no murmur, normal peripheral pulses Abdomen/GI: + pertinent finding ((+) midline surgical scars, non distended, hypoactibe bowel sounds, soft, nontender) Back: normal inspection, no CVA tenderness Extremities/Musculoskelatal: normal inspection, no calf tenderness, no pedal edema, normal range of motion Neurologic/Psych: stator winder II-XII nml as tested, no motor/sensory deficits, alert , normal mood/affect, oriented x 3 Skin: normal color, warm/dry, no rash Lymphatic: no adenopathy Hospital Course This is a 72 year old male with a PMH of recurrent SBO, multiple abdominal surgeries, HLD presents with nausea/vomiting and found to have partial SBO Partial SBO 11/06 NGT removed, tolerating clears diet advanced to full liquid d/c once tolerating full liquids after lunch outpatient f/u in 2 weeks with general surgery 11/05 NGT removed +BM, +flatus clears will advance in AM appreciate general surgery input 11/04 Abdominal Radiograph suggests partial SBO conservative management NGT, NPO, IVFs added once passing flatus, will remove NGT appreciate general surgery input DVT ppx Lovenox FULL CODE Total time spent on discharge = 20 minutes This includes examination of the patient, discharge planning, medication reconciliation, and communication with other providers. Discharge Instructions Please follow-up with Dr. Caban (general surgery) in 2 weeks Follow-up with your primary care as scheduled
[2017-11-06 10:31] VITALS: BP 139/82; PULSE 57; TEMP 36.8; O2SAT 96
--- NOTE | 2017-11-06 11:01 | NUR ---
Reviewed chart. Pt is independent in the room. Pt is for discharge today. He denies d/c needs. Please reconsult case Management if further needs arise.
[2017-11-06 15:00] VITALS: BP 125/75; PULSE 63; TEMP 36.8; O2SAT 98
== END 2017-11-06 17:46 | disposition home or self-care (01) | DRG 390 ==
LOC: C.EDB 20:38 → C.MSW 22:53 → EDBEDREQSVC 22:55 → EDBEDREQ 22:58 → ENRESERV 23:08
PROVIDERS: ADMIT Internal Medicine; ATTEND Family Medicine
DX: K56.600 Partial intestinal obstruction, unspecified as to cause (principal); K21.9 Gastro-esophageal reflux disease without esophagitis; E78.5 Hyperlipidemia, unspecified; Z51.81 Encounter for therapeutic drug level monitoring; Z79.899 Other long term (current) drug therapy; Z98.890 Other specified postprocedural states; Z87.19 Personal history of other diseases of the digestive system

== ENCOUNTER 2020-06-21 15:25 | Inpatient (IN) ==
--- OUTSIDE RECORDS SUMMARY | 2020-06-21 15:27 | External Medical Summary | Continuity of Care Document ---
:1945 Author Name Niurka Cedeno, Provider Address Unavailable Unavailable , Care Team Providers Name Role Phone Aldo Cedeno, Theodor Unavailable [email or web address] [email or web address], UNKNOWN Unavailable Unavailable Problems Active medical history not documented Allergies and Adverse Reactions Allergy history not documented Medications Medications not documented Procedures Procedures not documented Immunizations Immunizations not documented Plan of Treatment Planned Observations Planned Goals not documented Results No Known Results Results not documented
--- OUTSIDE RECORDS SUMMARY | 2020-06-21 15:28 | External Medical Summary | Continuity of Care Document ---
:1945 Author Name Niurka Cedeno, Provider Address Unavailable Unavailable , Care Team Providers Name Role Phone Aldo Cedeno, Theodor Unavailable [email or web address] [email or web address], UNKNOWN Unavailable Unavailable Problems Active medical history not documented Allergies and Adverse Reactions Allergy history not documented Medications Medications not documented Procedures Procedures not documented Immunizations Immunizations not documented Plan of Treatment Planned Observations Planned Goals not documented Results No Known Results Results not documented
[2020-06-21] MEDS ORDERED: SODIUM CHLORIDE 0.9% 1000ML 1,000 ML IV SCH (15:45)
--- NOTE | 2020-06-21 15:48 | Emergency Department Note ---
Impression & Plan Small bowel obstruction, Abdominal pain, Vomiting ED Provider Note NAME: KOLBY GAN AGE: 75 SEX: M : 1945 ARRIVES VIA: Walk-In INFORMANT: Patient, ED PROVIDER(S): Richard Watson DO CHIEF COMPLAINT: Abdominal pain HPI: The patient is a 75-year-old male who presented to the emergency department for an evaluation of abdominal pain. The patient describes upper and diffuse abdominal pain which began approximately 3 to 4 days ago. He states the pain is slowly been worsening. He states the pain is intermittent. He states the pain worsens with food and relieved with rest as well as vomiting. He has had similar episodes in the past. His last episode was 3 to 4 years ago and he had a bowel obstruction. The patient states he was able to manage the bowel obstruction nonsurgically but was admitted to the hospital at that time. He did not see his family doctor for the symptoms. He denies having any nausea or v omiting currently. He last vomited prior to arrival. He denies having any chest pain or difficulty breathing. He denies having any dysuria frequency or fever. The patient states his pain was moderate to severe earlier today. He did take 1 of his tramadol pain pills for the pain and it significantly improved. ROS: See above HPI for pertinent positives & negatives. A total of 10 systems reviewed and were otherwise negative. PAST MEDICAL HISTORY: See Below PAST SURGICAL HISTORY: See Below FAMILY HISTORY: See Below SOCIAL HISTORY: See Below HOME MEDICATIONS: See Below ALLERGIES: See Below VITALS: See Below PHYSICAL EXAMINATION: GENERAL: Patient is awake alert in no acute distress patient is resting comfortably and showing no signs of anxiety EYES: The conjunctivae are clear. The pupils are round and reactive. EARS, NOSE, MOUTH AND THROAT: The nose is without any evidence of any deformity. NECK: The neck is nontender and supple. RESPIRATORY: Normal respiratory effort is noted there is no evidence of wheezing rhonchi or rales CARDIOVASCULAR: Regular rate and rhythm noted there no murmurs rubs or gallops normal S1 normal S2. GASTROINTESTINAL: The abdomen is moderately distended and diffusely tender. There is right lower quadrant tenderness to palpation which is moderate. MUSCULOSKELETAL/EXTREMITIES: There is no evidence of gross deformity full range of motion is noted in the hips and shoulders. SKIN: There is no obvious evidence of any rash. There are no petechiae, pallor or cyanosis noted. NEUROLOGIC: Patient is awake alert and oriented x3 strength is symmetric patellar reflexes are 2+ bilaterally MEDICAL DECISION MAKING: The patient is a 75-year-old male who presented to the emergency department for an evaluation of abdominal pain and vomiting. The patient is a history of bowel obstruction. He was found to have signs of bowel obstruction on CT the abdomen and pelvis. The patient was treated with IV fluids and IV antibiotics. He was also treated with IV antiemetics. An NG tube was ordered. I discussed his case with the on-call general surgeon. I also discussed this case with the on-call [facility] hospitalist group. They have agreed to evaluate the patient in the emergency department for further management and disposition. Triage Nursing notes reviewed. Prior medical records reviewed Vital Signs: reviewed and remarkable for no significant abnormalities Differential diagnosis: Gastroenteritis, food borne illness, infections, appendicitis, diverticulitis, inflammatory bowel disease, obstruction, GI bleed, biliary pathology, volvulus, as well as other pathologies. ER treatment provided: See below Diagnostics interpreted by me: ECG: none Cardiac Monitoring: An order was placed for continuous cardiac monitoring. The monitor shows a rate of 98 with sinus rhythm. Laboratory studies: As stated above and show below. Imaging studies: See below Consultation(s): 1800: I discussed this case with Dr. Caban who is on-call for general surgery. He asked that the patient be admitted to medicine and he will follow along in consultation. 191: The [facility] hospitalist was contacted regarding the patient. Past Med/Surg History Social History Smoking Status: Never smoker Feels Safe at Home: Yes Allergies Allergies Allergy/AdvReac Type Severity Reaction Status Date / Time No Known Allergies Allergy Unverified 06/21/20 16:44 Home Meds Home Medications Medication Instructions Recorded Confirmed acetaminophen [Tylenol] 325 mg PO QID 06/21/20 06/21/20 cholecalciferol (vitamin D3) 25 mcg PO BID 06/21/20 06/21/20 [Vitamin D3] docusate sodium 100 mg PO DAILY 06/21/20 06/21/20 multivitamin 1 tab PO DAILY 06/21/20 06/21/20 omeprazole 80 mg PO DAILY 06/21/20 06/21/20 simvastatin 10 mg PO HS 06/21/20 06/21/20 tramadol 50 mg PO Q6H PRN 06/21/20 06/21/20 Results & Data (ED) Vital Signs Vital Signs - 24 hr 06/21/20 15:27 06/21/20 17:13 06/21/20 17:27 Temperature 36.9 C Temperature Source Oral Pulse Rate 99 H 75 82 Respiratory Rate 20 17 17 Respiratory Effort / Characteristics Non-Labored Respiratory Depth Normal Blood Pressure 126/84 130/73 Blood Pressure Mean 98 87 Pulse Oximetry 93 Oxygen Delivery Method Room Air Sepsis Recent Fever Within 48 Hours No Sepsis New/Unexplained Change in Mental Status N/A Sepsis Action Taken by Nursing No Action Required 06/21/20 17:30 06/21/20 17:40 06/21/20 17:50 Temperature Temperature Source Pulse Rate 78 72 80 Respiratory Rate 22 17 17 Respiratory Effort / Characteristics Respiratory Depth Blood Pressure Blood Pressure Mean Pulse Oximetry Oxygen Delivery Method Sepsis Recent Fever Within 48 Hours Sepsis New/Unexplained Change in Mental Status Sepsis Action Taken by Nursing 06/21/20 18:00 06/21/20 18:10 06/21/20 18:20 Temperature Temperature Source Pulse Rate 73 91 H Respiratory Rate 20 24 20 Respiratory Effort / Characteristics Respiratory Depth Blood Pressure 135/74 Blood Pressure Mean 94 Pulse Oximetry Oxygen Delivery Method Sepsis Recent Fever Within 48 Hours Sepsis New/Unexplained Change in Mental Status Sepsis Action Taken by Retirement Medications Current Medication List: was personally reviewed by me Laboratory Data Attestation: I reviewed the patient's lab results. Result diagrams: 06/21/20 16:25 06/21/20 16:25 Lab Results 06/21/20 06/21/20 06/21/20 Range/Units 16:25 16:25 16:30 WBC 8.29 (4.8-10.8) K/uL RBC 5.16 (4.7-6.1) M/uL Hgb 17.1 (14.0-18.0) g/dL POC Hgb 18.0 (14.0-18.0) g/dl Hct 49.0 (42-52) % POC Hct 53 H (42-52) % MCV 95.0 (80-100) fL MCH 33.1 (25-34) pg MCHC 34.9 (32-36) g/dL RDW Std Deviation 45.4 (36.4-46.3) fL RDW Coeff of Khris 13.1 (11.5-14.5) % Plt Count 189 (130-400) K/uL MPV 11.8 H (7.4-10.4) fL Immature Gran % (Auto) 0.1 % Neut % (Auto) 80.0 % Lymph % (Auto) 10.0 % [place] % (Auto) 9.8 % Eos % (Auto) 0.0 % Baso % (Auto) 0.1 % Neut # (Auto) 6.63 H (1.4-6.5) K/uL Lymph # (Auto) 0.83 L (1.2-3.4) K/uL [place] # (Auto) 0.81 H (0.11-0.59) K/uL Eos # (Auto) 0.00 (0-0.5) K/uL Baso # (Auto) 0.01 (0-0.2) K/uL Immature Gran # (Auto) 0.01 (0.00-0.02) K/uL POC Sodium 139 (135-144) mmol/L Sodium 138 (136-145) mmol/L POC Potassium 3.7 (3.3-5.0) mmol/L Potassium 4.0 (3.5-5.1) mmol/L POC Chloride 97 L (101-112) mmol/L Chloride 100 (98-107) mmol/L Carbon Dioxide 30 (21-32) mmol/L POC Total CO2 31 (24-31) mmol/L Anion Gap 8.0 (3-11) POC Anion Gap 16.0 (16-25) mmol/L POC BUN 30 H (7-18) mg/dl BUN 26 H (7-18) mg/dl Creatinine 1.80 H (0.6-1.4) mg/dl POC Creatinine 1.7 H (0.6-1.3) mg/dl Est Cr Clr Drug Dosing Not Reportable Est GFR ( Amer) 41.7 Est GFR (Non-Af Amer) 36.0 BUN/Creatinine Ratio 14.6 (10-20) Glucose 115 H (70-99) mg/dl POC Glucose (other) 122 H (70-99) mg/dl Calcium 10.1 (8.5-10.1) mg/dl POC Ioniz Calcium Sebastian 1.22 (1.12-1.32) mmol/l Total Bilirubin 2.6 H (0.2-1) mg/dl AST 28 (15-37) U/L ALT 29 (12-78) U/L Alkaline Phosphatase 91 (45-117) U/L Total Protein 8.7 H (6.4-8.2) gm/dl Albumin 3.7 (3.4-5.0) gm/dl Globulin 5.0 H (2.5-4.0) gm/dl Albumin/Globulin Ratio 0.7 L (0.9-2) Lipase 57 L (73-393) U/L Administered Medications Discontinued Medications Sodium Chloride (Nss 1000ml) 1,000 mls @ 999 mls/hr IV .Q1H1M QUIN Stop: 06/21/20 16:45 Last Infusion: 06/21/20 17:47 Dose: 0 mls/hr Documented by: [id number] Admin: 06/21/20 16:37 Dose: 999 mls/hr Documented by: [id number] Piperacillin Sod/Tazobactam Sod (Zosyn) 4.5 gm in 120 mls @ 240 mls/hr IV NOW ONE Stop: 06/21/20 17:46 Last Admin: 06/21/20 18:55 Dose: 240 mls/hr Documented by: [id number] Sodium Chloride (Nss 1000ml) 1,000 mls @ 999 mls/hr IV .Q1H1M ONE Stop: 06/21/20 18:18 Last Admin: 06/21/20 17:59 Dose: 999 mls/hr Documented by: [id number] Promethazine HCl (Phenergan) 6.25 mg in 50.25 mls @ 201 mls/hr IV NOW STA Stop: 06/21/20 18:12 Last Infusion: 06/21/20 18:28 Dose: 0 mls/hr Documented by: [id number] Admin: 06/21/20 18:03 Dose: 201 mls/hr Documented by: [id number] Ioversol (Ioversol 100ml) 93 ml IV ONCE ONE Stop: 06/21/20 16:57 Last Admin: 06/21/20 16:57 Dose: 93 ml Documented by: [id number] Ondansetron HCl (Ondansetron Inj 2 Mg/Ml 2 Ml Vial) 4 mg IV NOW STA Stop: 06/21/20 15:38 Last Admin: 06/21/20 17:13 Dose: 4 mg Documented by: [id number] Imaging Data Radiologist's Impression: ABDOMEN AND PELVIS CT WITH IV CONTRAST CT DOSE: 676.81 mGy.cm HISTORY: Acute generalized abdominal pain with history of small bowel obstruction. hx of OBS TECHNIQUE: Multiaxial CT images of the abdomen and pelvis were performed following the IV administration of 93 cc of Optiray 320, A dose lowering te chnique was utilized adhering to the principles of ALARA. COMPARISON STUDY: CT abdomen and pelvis 01/05/2014 FINDINGS: Mild linear subsegmental bibasilar atelectasis. There is no pneumatosis or pneum operitoneum. The imaged inferior cardiac chambers are unremarkable with coronary artery calcifications. Spleen, pancreas and adrenal glands are unremarkable. Cholecystectomy. Unremarkable liver. Patency of the hepatic and portal veins. Kidneys are unremarkable and enhance symmetrically. Partially decompressed urinary bladder. Dependent hyperdense material within the urinary bladder suggestive of probable contrast. Prostamegaly. Calcified plaque of the abdominal aorta without aneurysm. No adenopathy. Air and fluid-filled moderately distended stomach. High-grade small bowel obstruction with transition point noted involving a loop of jejunum within the central anterior abdomen, image 217 series 5. This is within this same site of obstruction seen on study from 2013. Decompressed small bowel loops are seen distally. There is reactive interloop edema. Mild colonic diverticulosis. Multiple moderate sized ventral abdominal wall hernias redemonstrated containing mesenteric fat and portions of nonobstructed large and small bowel. The appendix is not visualized and may be surgically absent. Punctate metallic density foci project over the right hip and gluteal tissues. No acute fracture. IMPRESSION: 1. High-grade small bowel obstruction with transition point involving a loop of jejunum within the anterior mid abdomen, likely secondary to small bowel adhesions. This appears to be the site of obstruction described on the study from 2013. 2. Multiple ventral abdominal wall hernias contain loops of large and small bowel. No associated obstruction caused by the hernias. 3. No pneumatosis or pneumoperitoneum. 4. Additional findings as above. ACT 112: Negative or not required by law. The above report was generated using voice recognition software. It may contain grammatical, syntax or spelling errors. Electronically signed by: Moose Oconnell M.D. 06/21/2020 5:34 PM Dictated: 06/21/20 1724 Transcribed: 06/21/20 1724 Blood Pressure Blood Pressure Findings: Normal blood pressure Discharge Plan Visit Data Chief Complaint: Abdominal Pain Stated Complaint: ABDOMINAL PAIN HX BLOCKAGES ED Provider: Richard Watson Discharge Problem: Small bowel obstruction, Abdominal pain, Vomiting Patient Disposition: Being Evaluated by Hospitalist Condition: Good Forms Stand Alone Forms: My [facility] Prescriptions Prescriptions: No Action multivitamin Tablet 1 tab PO DAILY RF: 0 acetaminophen [Tylenol] 325 mg Tablet 325 mg PO QID RF: 0 omeprazole 40 mg Capsule,Delayed Release(Dr/Ec) 80 mg PO DAILY RF: 0 tramadol 50 mg Tablet 50 mg PO Q6H PRN (Reason: Pain) RF: 0 simvastatin 20 mg Tablet 10 mg PO HS RF: 0 docusate sodium 100 mg Capsule 100 mg PO DAILY RF: 0 cholecalciferol (vitamin D3) [Vitamin D3] 25 mcg (1,000 unit) Capsule 25 mcg PO BID RF: 0 Referrals Referrals: PCP,NO [Primary Care Provider] - Discharge Problem: Abdominal pain Qualifiers: Abdominal location: generalized Qualified Code(s): R10.84 - Generalized abdominal pain Vomiting Qualifiers: Vomiting type: unspecified Vomiting Intractability: non-intractable Nausea presence: with nausea Qualified Code(s): R11.2 - Nausea with vomiting, unspecified
[2020-06-21 16:35] LABS: Basophils # (auto) 0.01 K/uL (0-0.2); Basophils % (auto) 0.1 %; Hemoglobin 17.1 g/dL (14.0-18.0); Immature Granulocytes # (auto) 0.01 K/uL (0.00-0.02); Immature Granulocytes % (auto) 0.1 %; Lymphocytes # (auto) 0.83 K/uL (1.2-3.4); Mean Corpuscular Hemoglobin 33.1 pg (25-34); Mean Corpuscular Hgb Conc 34.9 g/dL (32-36); Mean Platelet Volume 11.8 fL (7.4-10.4); Monocytes # (auto) 0.81 K/uL (0.11-0.59); Monocytes % (auto) 9.8 %; Neutrophils # (auto) 6.63 K/uL (1.4-6.5); Platelet Count 189 K/uL (130-400); RDW Coefficient of Variation 13.1 % (11.5-14.5); RDW Standard Deviation 45.4 fL (36.4-46.3); Red Blood Count 5.16 M/uL (4.7-6.1); White Blood Count 8.29 K/uL (4.8-10.8)
[2020-06-21] MEDS: ONDANSETRON INJ 2 MG/ML 2 ML VIAL IV STA ×2 (16:38→17:13)
[2020-06-21 16:43] LABS: iSTAT Creatinine 1.7 mg/dl (0.6-1.3); iSTAT Ionized Calcium 1.22 mmol/l (1.12-1.32); iSTAT Potassium 3.7 mmol/L (3.3-5.0)
[2020-06-21 16:51] LABS: Alanine Aminotransferase 29 U/L (12-78); Albumin Level 3.7 gm/dl (3.4-5.0); Aspartate Aminotransferase 28 U/L (15-37); BUN Creatinine Ratio 14.6 (10-20); Blood Urea Nitrogen 26 mg/dl (7-18); Calcium 10.1 mg/dl (8.5-10.1); Carbon Dioxide 30 mmol/L (21-32); Chloride 100 mmol/L (98-107); Est GFR (African American) 41.7; Glucose 115 mg/dl (70-99); Lipase 57 U/L (73-393); Sodium 138 mmol/L (136-145)
[2020-06-21 16:54] LABS: Albumin Globulin Ratio 0.7 (0.9-2); Alkaline Phosphatase 91 U/L (45-117); Bilirubin,Total 2.6 mg/dl (0.2-1); Total Protein 8.7 gm/dl (6.4-8.2)
[2020-06-21] MEDS ORDERED: IOVERSOL 100ml IV ONE (16:56)
[2020-06-21] MEDS ORDERED: PIPERACILL/TAZOBAC CONSULT ACTIVE PRN ×2 (17:17→21:58)
[2020-06-21] MEDS ORDERED: PIPERACILLIN/TAZOBACTAM 4.5 GM/120 ML BAG IV ONE (17:17)
[2020-06-21] MEDS ORDERED: SODIUM CHLORIDE 0.9% 1000ML 1,000 ML IV ONE (17:18)
--- NOTE | 2020-06-21 17:35 | CT Scan Report ---
ABDOMEN AND PELVIS CT WITH IV CONTRAST CT DOSE: 676.81 mGy.cm HISTORY: Acute generalized abdominal pain with history of small bowel obstruction. hx of OBS TECHNIQUE: Multiaxial CT images of the abdomen and pelvis were performed following the IV administrat ion of 93 cc of Optiray 320, A dose lowering technique was utilized adhering to the principles of AL KE. COMPARISON STUDY: CT abdomen and pelvis 01/05/2014 FINDINGS: Mild linear subsegmental bibasilar atelectasis. There is no pneumatosis or pneumoperitoneum. The imag ed inferior cardiac chambers are unremarkable with coronary artery calcifications. Spleen, pancreas and adrenal glands are unremarkable. Cholecystectomy. Unremarkable liver. Patency of the hepatic and portal veins. Kidneys are unremarkable and enhance symmetrically. Partially decompre ssed urinary bladder. Dependent hyperdense material within the urinary bladder suggestive of probable contrast. Prostamegaly. Calcified plaque of the abdominal aorta without aneurysm. No adenopathy. Air and fluid-filled moderately distended stomach. High-grade small bowel obstruction with transition point noted involving a loop of jejunum within the central anterior abdomen, image 217 series 5. Thi s is within this same site of obstruction seen on study from 2013. Decompressed small bowel loops are seen distally. There is reactive interloop edema. Mild colonic diverticulosis. Multiple moderate siz ed ventral abdominal wall hernias redemonstrated containing mesenteric fat and portions of nonobstruc anne large and small bowel. The appendix is not visualized and may be surgically absent. Punctate meta llic density foci project over the right hip and gluteal tissues. No acute fracture. IMPRESSION: 1. High-grade small bowel obstruction with transition point involving a loop of jejunum within the an terior mid abdomen, likely secondary to small bowel adhesions. This appears to be the site of obstruc tion described on the study from 2013. 2. Multiple ventral abdominal wall hernias contain loops of large and small bowel. No associated obst ruction caused by the hernias. 3. No pneumatosis or pneumoperitoneum. 4. Additional findings as above. ACT 112: Negative or not required by law. The above report was generated using voice recognition software. It may contain grammatical, syntax o r spelling errors. Electronically signed by: Moose Oconnell M.D. 06/21/2020 5:34 PM
[2020-06-21] MEDS ORDERED: PROMETHAZINE 6.25 MG/50.25 ML BAG IV STA (17:58)
[2020-06-21] MEDS ORDERED: PROMETHAZINE 6.25 MG/50.25 ML BAG IV ONE (18:30)
--- NOTE | 2020-06-21 18:30 | Surgery Consultation ---
Date of Consultation June 21, 2020 Assessment & Plan (1) Abdominal pain: pt is a 75 years old male who presents to Er with one day history right side abdominal pain with nausea and vomiting, IMP: SBO, Plan, no emergent surgery indication now, I agree with that hospitalist will admit pt to hospital for conservative treatment first, NPO, IV fluid, NG tube, control pain, KUB and labs in the morning, will F/U, D/W possible surgery treatment if pt's symptoms are getting worse, pt understood, he agrees with the plan, I answered all questions, will F/U, Thanks, (2) Small bowel obstruction: History of Present Illness History of Present Illness CHIEF COMPLAINT: Abdominal pain HPI: The patient is a 75-year-old male who presented to the emergency department for an evaluation of abdominal pain. The patient describes upper and diffuse abdominal pain which began approximately 3 to 4 days ago. He states the pain is slowly been worsening. He states the pain is intermittent. He states the pain worsens with food and relieved with rest as well as vomiting. He has had similar episodes in the past. His last episode was 3 to 4 years ago and he had a bowel obstruction. The patient states he was able to manage the bowel obstruction nonsurgically but was admitted to the hospital at that time. He did not see his family doctor for the symptoms. He denies having any nausea or vomiting currently. He last vomited prior to arrival. He denies having any chest pain or difficulty breathing. He denies having any dysuria frequency or fever. The patient states his pain was moderate to severe earlier today. He did take 1 of his tramadol pain pills for the pain and it significantly improved. I ( Loyda Caban MD ) got a call for consult SBO, I reviewed pt's H/P, labs, CT scan with pt, pt is still have some abdominal pain on right side, pt had same symptoms 2 years ago, pt had conservative treatment, pt was doing fine, ROS: See above HPI for pertinent positives & negatives. A total of 10 systems reviewed and were otherwise negative. PAST MEDICAL HISTORY: See Below PAST SURGICAL HISTORY: See Below FAMILY HISTORY: See Below SOCIAL HISTORY: See Below HOME MEDICATIONS: See Below ALLERGIES: See Below Allergies Allergy/AdvReac Type Severity Reaction Status Date / Time No Known Allergies Allergy Unverified 06/21/20 16:44 Home Medications Home Medications Medication Instructions Recorded Confirmed Type acetaminophen [Tylenol] 325 mg PO QID 06/21/20 06/21/20 History cholecalciferol (vitamin D3) 25 mcg PO BID 06/21/20 06/21/20 History [Vitamin D3] docusate sodium 100 mg PO DAILY 06/21/20 06/21/20 History multivitamin 1 tab PO DAILY 06/21/20 06/21/20 History omeprazole 80 mg PO DAILY 06/21/20 06/21/20 History simvastatin 10 mg PO HS 06/21/20 06/21/20 History tramadol 50 mg PO Q6H PRN 06/21/20 06/21/20 History Patient History Social History Smoking Status: Never smoker Feels Safe at Home: Yes Review of Systems Review of Systems: All systems reviewed & are unremarkable except as noted in HPI & below Constitutional: as per Subjective / HPI Eyes: as per Subjective / HPI Ear, Nose, Mouth, Throat: as per Subjective / HPI Respiratory: as per Subjective / HPI Cardiovascular: as per Subjective / HPI Gastrointestinal: as per Subjective / HPI S/P cholecystectomy, bowel surgery Genitourinary: + as per Subjective / HPI Musculoskeletal: as per Subjective / HPI Integumentary: as per Subjective / HPI Neurologic: as per Subjective / HPI Psychiatric: as per Subjective / HPI Endocrine: as per Subjective / HPI Hematologic / Lymphatic: as per Subjective / HPI Allergy / Immunological: as per Subjective / HPI Physical Exam Constitutional: WD/WN, vitals as above well developed and well nourished Eyes: PERRL, conjunctivae normal, anicteric sclerae ENMT: external ear and nose normal, oropharynx normal Neck: trachea midline, no thyromegaly Respiratory: normal respiratory effort, lungs clear to auscultation Cardiovascular: Rate/Rhythm: regular rate and regular rhythm Heart Sounds: normal S1 and normal S2 Gastrointestinal (Abdomen): normal bowel sounds, soft, nontender, no hepa tosplenomegaly soft, mild tenderness at right side abdomen, middle line scar, no rebound pain, BS +, no distend Musculoskeletal: no cyanosis or clubbing, extremities motor strength 5/5 Skin: no rashes, warm and dry Neurologic: patellar DTR's 2+ bilat, sensation intact Psychiatric: Orientation: alert and oriented x 3 Results & Data ([facility]) Vital Signs (Past 12 Hours) Vital Signs Temp Pulse Resp BP Pulse Ox 06/21/20 17:27 82 17 06/21/20 17:13 75 17 130/73 06/21/20 15:27 36.9 C 99 H 20 126/84 93 Laboratory Results Abnormal lab results 06/21/20 06/21/20 06/21/20 Range/Units 16:25 16:25 16:30 POC Hct 53 H (42-52) % MPV 11.8 H (7.4-10.4) fL Neut # (Auto) 6.63 H (1.4-6.5) K/uL Lymph # (Auto) 0.83 L (1.2-3.4) K/uL [place] # (Auto) 0.81 H (0.11-0.59) K/uL POC Chloride 97 L (101-112) mmol/L POC BUN 30 H (7-18) mg/dl BUN 26 H (7-18) mg/dl Creatinine 1.80 H (0.6-1.4) mg/dl POC Creatinine 1.7 H (0.6-1.3) mg/dl Glucose 115 H (70-99) mg/dl POC Glucose (other) 122 H (70-99) mg/dl Total Bilirubin 2.6 H (0.2-1) mg/dl Total Protein 8.7 H (6.4-8.2) gm/dl Globulin 5.0 H (2.5-4.0) gm/dl Albumin/Globulin Ratio 0.7 L (0.9-2) Lipase 57 L (73-393) U/L Diagnostic Findings ABDOMEN AND PELVIS CT WITH IV CONTRAST CT DOSE: 676.81 mGy.cm HISTORY: Acute generalized abdominal pain with history of small bowel obstruction. hx of OBS TECHNIQUE: Multiaxial CT images of the abdomen and pelvis were performed following the IV administration of 93 cc of Optiray 320, A dose lowering technique was utilized adhering to the principles of ALARA. COMPARISON STUDY: CT abdomen and pelvis 01/05/2014 FINDINGS: Mild linear subsegmental bibasilar atelectasis. There is no pneumatosis or p neumoperitoneum. The imaged inferior cardiac chambers are unremarkable with coronary artery calcifications. Spleen, pancreas and adrenal glands are unremarkable. Cholecystectomy. Unremarkable liver. Patency of the hepatic and portal veins. Kidneys are unremarkable and enhance symmetrically. Partially decompressed urinary bladder. Dependent hyperdense material within the urinary bladder suggestive of probable contrast. Prostamegaly. Calcified plaque of the abdominal aorta without aneurysm. No adenopathy. Air and fluid-filled moderately distended stomach. High-grade small bowel obstruction with transition point noted involving a loop of jejunum within the central anterior abdomen, image 217 series 5. This is within this same site of obstruction seen on study from 2013. Decompressed small bowel loops are seen distally. There is reactive interloop edema. Mild colonic diverticulosis. Multiple moderate sized ventral abdominal wall hernias redemonstrated containing mesenteric fat and portions of nonobstructed large and small bowel. The appendix is not visualized and may be surgically absent. Punctate metallic density foci project over the right hip and gluteal tissues. No acute fracture. IMPRESSION: 1. High-grade small bowel obstruction with transition point involving a loop of jejunum within the anterior mid abdomen, likely secondary to small bowel adhesions. This appears to be the site of obstruction described on the study from 2013. 2. Multiple ventral abdominal wall hernias contain loops of large and small bowel. No associated obstruction caused by the hernias. 3. No pneumatosis or pneumoperitoneum. 4. Additional findings as above. (1) Abdominal pain Abdominal location: generalized Qualified Code(s): R10.84 - Generalized abdominal pain
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
[2020-06-21] MEDS ORDERED: ACETAMINOPHEN 1,000 MG/100 ML VIAL IV STA (20:13)
[2020-06-21 21:14] LABS: Appearance Urine Cloudy (Clear); Bacteria Urine Automated Negative (Negative); Blood Urine Negative (Negative); Color Urine Dark Yellow; Epithelial Cell Urine Auto >30 /lpf (0-5); Glucose Urine UA Negative (Negative); Ketones Urine Trace (Negative); Leukocyte Esterase Urine Trace (Negative); Nitrite Urine Positive (Negative); Protein Urine 1+ (Negative); Specific Gravity Urine 1.029 (1.000-1.030); Urobilinogen Urine Negative (Negative)
[2020-06-21 21:16] LABS: Bilirubin Urine Negative (Negative); Ictotest Urine Negative (Negative)
[2020-06-21 21:25] LABS: Cast Urine Automated >30 /lpf (0-5)
[2020-06-21] MEDS ORDERED: ONDANSETRON INJ 2 MG/ML 2 ML VIAL IV PRN (21:58)
[2020-06-21] MEDS ORDERED: PROMETHAZINE HCL 6.25 MG in SODIUM CHLORIDE 0.9% 50 ML IV PRN (21:58)
[2020-06-21] MEDS: POTASSIUM CHLORIDE 30 MEQ in SODIUM CHLORIDE 0.9% 1000ML 1,000 ML IV SCH (22:29)
[2020-06-21] MEDS ORDERED: PATIENT'S HEIGHT AND/OR WEIGHT NEEDED SCH (22:30)
[2020-06-22] MEDS ORDERED: HYDROmorphone INJ 0.5 MG/0.5 ML SYR IV STA (00:38)
[2020-06-22] MEDS: PIPERACILLIN/TAZOBACTAM 3.375 GM in DEXTROSE 5% 100 ML IV SCH ×2 (02:40→10:53)
[2020-06-22] MEDS: POTASSIUM CHLORIDE 30 MEQ in SODIUM CHLORIDE 0.9% 1000ML 1,000 ML IV SCH ×3 (06:35→23:12)
[2020-06-22] MEDS: ACETAMINOPHEN 1,000 MG/100 ML VIAL IV PRN ×2 (06:40→23:22)
[2020-06-22 07:34] LABS: Basophils # (auto) 0.01 K/uL (0-0.2); Basophils % (auto) 0.2 %; Eosinophils # (auto) 0.05 K/uL (0-0.5); Eosinophils % (auto) 0.9 %; Hemoglobin 14.9 g/dL (14.0-18.0); Lymphocytes # (auto) 0.56 K/uL (1.2-3.4); Lymphocytes % (auto) 10.4 %; Mean Corpuscular Hemoglobin 33.2 pg (25-34); Mean Corpuscular Hgb Conc 33.9 g/dL (32-36); Mean Platelet Volume 11.5 fL (7.4-10.4); Monocytes # (auto) 0.67 K/uL (0.11-0.59); Monocytes % (auto) 12.4 %; Neutrophils # (auto) 4.12 K/uL (1.4-6.5); Neutrophils % (auto) 76.1 %; Platelet Count 158 K/uL (130-400); RDW Coefficient of Variation 13.5 % (11.5-14.5); RDW Standard Deviation 48.4 fL (36.4-46.3); Red Blood Count 4.49 M/uL (4.7-6.1); White Blood Count 5.41 K/uL (4.8-10.8)
[2020-06-22 08:10] LABS: BUN Creatinine Ratio 19.5 (10-20); Creatinine Clr Calc Pharmacy 42.4 ml/min; Est GFR (African American) 58.6; Est GFR (Non-African American) 50.5; Potassium 3.8 mmol/L (3.5-5.1)
--- NOTE | 2020-06-22 09:17 | XRay Report ---
KUB HISTORY: Small bowel obstruction. Follow-up. COMPARISON: Abdomen and pelvis CT 06/21/2020. FINDINGS: Contrast within the bladder is noted from the prior CT examination. Scattered metallic shra pnel within the right side the abdomen/pelvis. Prior cholecystectomy. Dilated loops of small bowel reyes ve essentially resolved in the interval. Nasogastric tube terminates in the fundus of the stomach. Th e fenestrated line is at the gastroesophageal junction. No renal calculi. No ureteral calculi. No pne umoperitoneum or pneumatosis. IMPRESSION: 1. Dilated loops a small bowel appear to have resolved in the interval. 2. Nasogastric tube terminates in the fundus of the stomach with the fenestrated line at the gastroes ophageal junction. This should be advanced by approximately 5 cm. ACT 112: Negative or not required by law. Electronically signed by: Manuel Pearson M.D. 06/22/2020 9:16 AM
[2020-06-22] MEDS ORDERED: POLYETHYLENE (MIRALAX) 17 GM PACK PO ONE (11:23)
--- NOTE | 2020-06-22 12:46 | Surgery Progress Note ---
Date of Service June 22, 2020 Assessment & Plan (1) Small bowel obstruction: afebrile, vitals stable, no leukocytosis abdomen is soft, nontender extensive surgical history KUB showing resolved dilated small bowel loops NGT fell out after my evaluation Plan: PO Miralax one time does encouraged ambulation to increase GI motility If starts to pass gas today, can start on clear liquids slowly continue medical management Dr. Caban has seen patient, agrees with above. Admission and Anticipated Discharge Date Admission Date: June 21, 2020 Subjective feeling better no abdominal pain, no nausea or vomiting not passing any gas or bowel movement yet Physical Exam Constitutional: WD/WN, vitals as above no acute distress Respiratory: normal respiratory effort; no respiratory distress Gastrointestinal (Abdomen): Inspection/Auscultation: abdomen normal to inspection and + abdominal surgical scar (midline laparotomy scar present); abdomen not distended Percussion/Palpation: abdomen soft; abdomen nontender, no guarding and abdomen not rigid Skin: no rashes, warm and dry Psychiatric: A+Ox3, euthymic affect Results & Data ([facility]) Vital Signs (Past 12 Hours) Vital Signs Temp Pulse Resp BP Pulse Ox 06/22/20 07:16 36.8 C 74 16 121/74 93 Laboratory Results 06/22/20 06/22/20 06/22/20 Range/Units 07:17 07:17 07:17 WBC 5.41 (4.8-10.8) K/uL RBC 4.49 L (4.7-6.1) M/uL Hgb 14.9 (14.0-18.0) g/dL POC Hgb (14.0-18.0) g/dl Hct 44.0 (42-52) % POC Hct (42-52) % MCV 98.0 (80-100) fL MCH 33.2 (25-34) pg MCHC 33.9 (32-36) g/dL RDW Std Deviation 48.4 H (36.4-46.3) fL RDW Coeff of Khris 13.5 (11.5-14.5) % Plt Count 158 (130-400) K/uL MPV 11.5 H (7.4-10.4) fL Immature Gran % (Auto) 0.0 % Neut % (Auto) 76.1 % Lymph % (Auto) 10.4 % [place] % (Auto) 12.4 % Eos % (Auto) 0.9 % Baso % (Auto) 0.2 % Neut # (Auto) 4.12 (1.4-6.5) K/uL Lymph # (Auto) 0.56 L (1.2-3.4) K/uL [place] # (Auto) 0.67 H (0.11-0.59) K/uL Eos # (Auto) 0.05 (0-0.5) K/uL Baso # (Auto) 0.01 (0-0.2) K/uL Immature Gran # (Auto) 0.00 (0.00-0.02) K/uL POC Sodium (135-144) mmol/L Sodium 140 (136-145) mmol/L POC Potassium (3.3-5.0) mmol/L Potassium 3.8 (3.5-5.1) mmol/L POC Chloride (101-112) mmol/L Chloride 105 (98-107) mmol/L Carbon Dioxide 30 (21-32) mmol/L POC Total CO2 (24-31) mmol/L Anion Gap 5.0 (3-11) POC Anion Gap (16-25) mmol/L POC BUN (7-18) mg/dl BUN 27 H (7-18) mg/dl Creatinine 1.36 D (0.6-1.4) mg/dl POC Creatinine (0.6-1.3) mg/dl Est Cr Clr Drug Dosing 42.4 Est GFR ( Amer) 58.6 Est GFR (Non-Af Amer) 50.5 BUN/Creatinine Ratio 19.5 (10-20) Glucose 100 H (70-99) mg/dl POC Glucose (other) (70-99) mg/dl Calcium 9.0 (8.5-10.1) mg/dl POC Ioniz Calcium Sebastian (1.12-1.32) mmol/l Total Bilirubin (0.2-1) mg/dl AST (15-37) U/L ALT (12-78) U/L Alkaline Phosphatase (45-117) U/L Total Protein (6.4-8.2) gm/dl Albumin (3.4-5.0) gm/dl Globulin (2.5-4.0) gm/dl Albumin/Globulin Ratio (0.9-2) Lipase (73-393) U/L Urine Color Urine Appearance (Clear) Urine pH (4.5-7.5) Ur Specific [place] (1.000-1.030) Urine Protein (Negative) Urine Glucose (UA) (Negative) Urine Ketones (Negative) Urine Blood (Negative) Urine Nitrite (Negative) Urine Bilirubin (Negative) Urine Urobilinogen (Negative) Ur Leukocyte Esterase (Negative) Urine WBC (Auto) (0-5) /hpf Urine RBC (Auto) (0-4) /hpf U Hyaline Cast (Auto) (0-5) /lpf U Epithel Cells (Auto) (0-5) /lpf Urine Bacteria (Auto) (Negative) Granular Casts (0) /lpf Hepatitis C Ab Screen Neg (Neg) 06/21/20 06/21/20 06/21/20 Range/Units 21:00 16:30 16:25 WBC (4.8-10.8) K/uL RBC (4.7-6.1) M/uL Hgb (14.0-18.0) g/dL POC Hgb 18.0 (14.0-18.0) g/dl Hct (42-52) % POC Hct 53 H (42-52) % MCV (80-100) fL MCH (25-34) pg MCHC (32-36) g/dL RDW Std Deviation (36.4-46.3) fL RDW Coeff of Khris (11.5-14.5) % Plt Count (130-400) K/uL MPV (7.4-10.4) fL Immature Gran % (Auto) % Neut % (Auto) % Lymph % (Auto) % [place] % (Auto) % Eos % (Auto) % Baso % (Auto) % Neut # (Auto) (1.4-6.5) K/uL Lymph # (Auto) (1.2-3.4) K/uL [place] # (Auto) (0.11-0.59) K/uL Eos # (Auto) (0-0.5) K/uL Baso # (Auto) (0-0.2) K/uL Immature Gran # (Auto) (0.00-0.02) K/uL POC Sodium 139 (135-144) mmol/L Sodium 138 (136-145) mmol/L POC Potassium 3.7 (3.3-5.0) mmol/L Potassium 4.0 (3.5-5.1) mmol/L POC Chloride 97 L (101-112) mmol/L Chloride 100 (98-107) mmol/L Carbon Dioxide 30 (21-32) mmol/L POC Total CO2 31 (24-31) mmol/L Anion Gap 8.0 (3-11) POC Anion Gap 16.0 (16-25) mmol/L POC BUN 30 H (7-18) mg/dl BUN 26 H (7-18) mg/dl Creatinine 1.80 H (0.6-1.4) mg/dl POC Creatinine 1.7 H (0.6-1.3) mg/dl Est Cr Clr Drug Dosing Not Reportable Est GFR ( Amer) 41.7 Est GFR (Non-Af Amer) 36.0 BUN/Creatinine Ratio 14.6 (10-20) Glucose 115 H (70-99) mg/dl POC Glucose (other) 122 H (70-99) mg/dl Calcium 10.1 (8.5-10.1) mg/dl POC Ioniz Calcium Sebastian 1.22 (1.12-1.32) mmol/l Total Bilirubin 2.6 H (0.2-1) mg/dl AST 28 (15-37) U/L ALT 29 (12-78) U/L Alkaline Phosphatase 91 (45-117) U/L Total Protein 8.7 H (6.4-8.2) gm/dl Albumin 3.7 (3.4-5.0) gm/dl Globulin 5.0 H (2.5-4.0) gm/dl Albumin/Globulin Ratio 0.7 L (0.9-2) Lipase 57 L (73-393) U/L Urine Color Dark Yellow Urine Appearance Cloudy A (Clear) Urine pH 5.0 (4.5-7.5) Ur Specific [place] 1.029 (1.000-1.030) Urine Protein 1+ H (Negative) Urine Glucose (UA) Negative (Negative) Urine Ketones Trace H (Negative) Urine Blood Negative (Negative) Urine Nitrite Positive A (Negative) Urine Bilirubin Negative (Negative) Urine Urobilinogen Negative (Negative) Ur Leukocyte Esterase Trace H (Negative) Urine WBC (Auto) 1-5 (0-5) /hpf Urine RBC (Auto) 5-10 H (0-4) /hpf U Hyaline Cast (Auto) >30 H (0-5) /lpf U Epithel Cells (Auto) >30 H (0-5) /lpf Urine Bacteria (Auto) Negative (Negative) Granular Casts 1-5 H (0) /lpf Hepatitis C Ab Screen (Neg) 06/21/20 Range/Units 16:25 WBC 8.29 (4.8-10.8) K/uL RBC 5.16 (4.7-6.1) M/uL Hgb 17.1 (14.0-18.0) g/dL POC Hgb (14.0-18.0) g/dl Hct 49.0 (42-52) % POC Hct (42-52) % MCV 95.0 (80-100) fL MCH 33.1 (25-34) pg MCHC 34.9 (32-36) g/dL RDW Std Deviation 45.4 (36.4-46.3) fL RDW Coeff of Khris 13.1 (11.5-14.5) % Plt Count 189 (130-400) K/uL MPV 11.8 H (7.4-10.4) fL Immature Gran % (Auto) 0.1 % Neut % (Auto) 80.0 % Lymph % (Auto) 10.0 % [place] % (Auto) 9.8 % Eos % (Auto) 0.0 % Baso % (Auto) 0.1 % Neut # (Auto) 6.63 H (1.4-6.5) K/uL Lymph # (Auto) 0.83 L (1.2-3.4) K/uL [place] # (Auto) 0.81 H (0.11-0.59) K/uL Eos # (Auto) 0.00 (0-0.5) K/uL Baso # (Auto) 0.01 (0-0.2) K/uL Immature Gran # (Auto) 0.01 (0.00-0.02) K/uL POC Sodium (135-144) mmol/L Sodium (136-145) mmol/L POC Potassium (3.3-5.0) mmol/L Potassium (3.5-5.1) mmol/L POC Chloride (101-112) mmol/L Chloride (98-107) mmol/L Carbon Dioxide (21-32) mmol/L POC Total CO2 (24-31) mmol/L Anion Gap (3-11) POC Anion Gap (16-25) mmol/L POC BUN (7-18) mg/dl BUN (7-18) mg/dl Creatinine (0.6-1.4) mg/dl POC Creatinine (0.6-1.3) mg/dl Est Cr Clr Drug Dosing Est GFR ( Amer) Est GFR (Non-Af Amer) BUN/Creatinine Ratio (10-20) Glucose (70-99) mg/dl POC Glucose (other) (70-99) mg/dl Calcium (8.5-10.1) mg/dl POC Ioniz Calcium Sebastian (1.12-1.32) mmol/l Total Bilirubin (0.2-1) mg/dl AST (15-37) U/L ALT (12-78) U/L Alkaline Phosphatase (45-117) U/L Total Protein (6.4-8.2) gm/dl Albumin (3.4-5.0) gm/dl Globulin (2.5-4.0) gm/dl Albumin/Globulin Ratio (0.9-2) Lipase (73-393) U/L Urine Color Urine Appearance (Clear) Urine pH (4.5-7.5) Ur Specific [place] (1.000-1.030) Urine Protein (Negative) Urine Glucose (UA) (Negative) Urine Ketones (Negative) Urine Blood (Negative) Urine Nitrite (Negative) Urine Bilirubin (Negative) Urine Urobilinogen (Negative) Ur Leukocyte Esterase (Negative) Urine WBC (Auto) (0-5) /hpf Urine RBC (Auto) (0-4) /hpf U Hyaline Cast (Auto) (0-5) /lpf U Epithel Cells (Auto) (0-5) /lpf Urine Bacteria (Auto) (Negative) Granular Casts (0) /lpf Hepatitis C Ab Screen (Neg)
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
[2020-06-22] MEDS: PANTOprazole 40 MG in SYRINGE 0 ML IV SCH (17:06)
[2020-06-22] MEDS: HEPARIN SOD 5,000 UNIT/0.5 ML VIAL SQ SCH (20:47)
--- NOTE | 2020-06-22 21:07 | Billing Data ---
Date of Service June 22, 2020 Coding Level of Care Code 26746 Initial Inpt Care Lvl 3
[2020-06-22] MEDS: SIMVASTATIN 10 MG TAB PO SCH (22:07)
--- NOTE | 2020-06-23 07:09 | XRay Report ---
KUB HISTORY: NG tube placement COMPARISON: KUB 06/22/2020. FINDINGS: NG tube terminates at the proximal stomach with the fenestrated line at the distal esophagu s. This should be advanced by approximately 10 cm. No renal calculi. No ureteral calculi. No pneumop eritoneum or pneumatosis. IMPRESSION: NG tube terminates at the proximal stomach with the fenestrated line at the distal esophagus. This sh ould be advanced by approximately 10 cm. ACT 112: Negative or not required by law. Electronically signed by: Manuel Pearson M.D. 06/23/2020 7:08 AM
[2020-06-23] MEDS: POTASSIUM CHLORIDE 30 MEQ in SODIUM CHLORIDE 0.9% 1000ML 1,000 ML IV SCH ×2 (08:06→16:22)
[2020-06-23] MEDS ORDERED: PANTOprazole 40 MG TAB PO SCH (09:00)
[2020-06-23] MEDS: HEPARIN SOD 5,000 UNIT/0.5 ML VIAL SQ SCH ×2 (09:06→20:34)
[2020-06-23] MEDS: PANTOprazole 40 MG in SYRINGE 0 ML IV SCH (09:07)
[2020-06-23 09:43] LABS: BUN Creatinine Ratio 22.2 (10-20); Calcium 8.6 mg/dl (8.5-10.1); Creatinine Clr Calc Pharmacy 66.2 ml/min; Est GFR (African American) 97.8; Est GFR (Non-African American) 84.4; Magnesium 2.2 mg/dl (1.8-2.4); Potassium 3.9 mmol/L (3.5-5.1)
[2020-06-23 10:01] LABS: Phosphorus 1.3 mg/dl (2.5-4.9)
[2020-06-23] MEDS ORDERED: SODIUM PHOSPHATE 3 MMOL/1 ML INFUSION IV STA (10:13)
[2020-06-23] MEDS ORDERED: SODIUM PHOSPHATE 24 MMOL in SODIUM CHLORIDE 0.9% 500 ML IV ONE (10:30)
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
[2020-06-23 11:29] LABS: Basophils # (auto) 0.02 K/uL (0-0.2); Basophils % (auto) 0.6 %; Eosinophils # (auto) 0.05 K/uL (0-0.5); Eosinophils % (auto) 1.5 %; Hematocrit (blood only) 43.8 % (42-52); Hemoglobin 14.2 g/dL (14.0-18.0); Immature Granulocytes # (auto) 0.01 K/uL (0.00-0.02); Immature Granulocytes % (auto) 0.3 %; Lymphocytes # (auto) 0.85 K/uL (1.2-3.4); Lymphocytes % (auto) 26.1 %; Mean Corpuscular Hemoglobin 32.3 pg (25-34); Mean Corpuscular Hgb Conc 32.4 g/dL (32-36); Mean Corpuscular Volume 99.8 fL (80-100); Monocytes # (auto) 0.71 K/uL (0.11-0.59); Monocytes % (auto) 21.8 %; Neutrophils # (auto) 1.62 K/uL (1.4-6.5); Neutrophils % (auto) 49.7 %; Platelet Count 158 K/uL (130-400); RDW Coefficient of Variation 13.4 % (11.5-14.5); RDW Standard Deviation 49.1 fL (36.4-46.3); Red Blood Count 4.39 M/uL (4.7-6.1); White Blood Count 3.26 K/uL (4.8-10.8)
[2020-06-23] MEDS ORDERED: bisacodyL 10 MG SUPP PR STA (11:35)
--- NOTE | 2020-06-23 12:00 | Surgery Progress Note ---
Date of Service June 23, 2020 Assessment & Plan (1) Small bowel obstruction: afebrile, vitals stable, no leukocytosis NGT re-inserted last night, 1600 output since placement, 200 cc in last 4 hours. Abdomen soft, nondistended, nontender. Nausea/bloating/belching resolved after reinsertion. no return of bowel function yet. Plan: Keep NGT to LIS Dulcolax suppository continue ambulation Patient has had conservative treatment for SBO in past with NGT usually kept for 2-3 days. Will continue conservative management as he has had extensive abdominal surgeries in past and multiple abdominal wall hernias without obstruction. Patient agreeable to no surgical intervention if possible Dr. Dooley covering over weekend. Dr. Caban has seen patient, agrees with above. Admission and Anticipated Discharge Date Admission Date: June 21, 2020 Subjective feeling better since NGT was re-inserted last night nausea resolved belching resolved bloating resolved no flatus or bowel movement yet ambulating hallway Physical Exam Constitutional: WD/WN, vitals as above no acute distress and not ill appearing Respiratory: normal respiratory effort; no respiratory distress Gastrointestinal (Abdomen): Inspection/Auscultation: abdomen normal to inspection; abdomen not distended Percussion/Palpation: abdomen soft; abdomen nontender, no guarding and abdomen not rigid multiple midline abdominal scars present Skin: no rashes, warm and dry Psychiatric: A+Ox3, euthymic affect Results & Data ([facility]) Vital Signs (Past 12 Hours) Vital Signs Temp Pulse Resp BP Pulse Ox 06/23/20 07:19 36.8 C 83 16 136/79 93 Laboratory Results 06/23/20 06/23/20 Range/Units 08:53 08:53 WBC 3.26 L (4.8-10.8) K/uL RBC 4.39 L (4.7-6.1) M/uL Hgb 14.2 (14.0-18.0) g/dL Hct 43.8 (42-52) % MCV 99.8 (80-100) fL MCH 32.3 (25-34) pg MCHC 32.4 (32-36) g/dL RDW Std Deviation 49.1 H (36.4-46.3) fL RDW Coeff of Khris 13.4 (11.5-14.5) % Plt Count 158 (130-400) K/uL MPV 12.0 H (7.4-10.4) fL Immature Gran % (Auto) 0.3 % Neut % (Auto) 49.7 % Lymph % (Auto) 26.1 % [place] % (Auto) 21.8 % Eos % (Auto) 1.5 % Baso % (Auto) 0.6 % Neut # (Auto) 1.62 (1.4-6.5) K/uL Lymph # (Auto) 0.85 L (1.2-3.4) K/uL [place] # (Auto) 0.71 H (0.11-0.59) K/uL Eos # (Auto) 0.05 (0-0.5) K/uL Baso # (Auto) 0.02 (0-0.2) K/uL Immature Gran # (Auto) 0.01 (0.00-0.02) K/uL Sodium 141 (136-145) mmol/L Potassium 3.9 (3.5-5.1) mmol/L Chloride 109 H (98-107) mmol/L Carbon Dioxide 27 (21-32) mmol/L Anion Gap 5.0 (3-11) BUN 19 H (7-18) mg/dl Creatinine 0.87 D (0.6-1.4) mg/dl Est Cr Clr Drug Dosing 66.2 ml/min Est GFR ( Amer) 97.8 Est GFR (Non-Af Amer) 84.4 BUN/Creatinine Ratio 22.2 H (10-20) Glucose 81 (70-99) mg/dl Calcium 8.6 (8.5-10.1) mg/dl Phosphorus 1.3 L* (2.5-4.9) mg/dl Magnesium 2.2 (1.8-2.4) mg/dl
--- NOTE | 2020-06-23 14:46 | XRay Report ---
KUB HISTORY: Small bowel obstruction. Follow-up. COMPARISON: KUB 06/22/2020. FINDINGS: Nasogastric tube terminates in the fundus of the stomach. This has been advanced. Prior cho lecystectomy. Mildly dilated gas-filled loops of small bowel are seen within the upper abdomen. No r enal calculi. No ureteral calculi. No pneumoperitoneum or pneumatosis. IMPRESSION: 1. Nasogastric tube has been advanced and terminates at the fundus of the stomach. 2. Mildly dilated gas-filled loops of small bowel within the upper abdomen suggesting a small bowel o bstruction. ACT 112: Negative or not required by law. Electronically signed by: Manuel Pearson M.D. 06/23/2020 2:45 PM
[2020-06-23] MEDS ORDERED: Nursing to Pharmacy Communication SCH (17:30)
[2020-06-23] MEDS ORDERED: CHLORASEPTIC 1.4% SOLN 180 ML BTL MT PRN (17:43)
[2020-06-23] MEDS: FAMOTIDINE 20 MG in SYRINGE 3 ML IV SCH (20:34)
[2020-06-23] MEDS: SIMVASTATIN 10 MG TAB PO SCH (20:42)
[2020-06-24] MEDS: POTASSIUM CHLORIDE 30 MEQ in SODIUM CHLORIDE 0.9% 1000ML 1,000 ML IV SCH ×3 (00:22→15:40)
[2020-06-24 05:58] LABS: Hematocrit (blood only) 40.4 % (42-52); Hemoglobin 13.7 g/dL (14.0-18.0); Mean Corpuscular Hemoglobin 32.7 pg (25-34); Mean Corpuscular Hgb Conc 33.9 g/dL (32-36); Mean Corpuscular Volume 96.4 fL (80-100); Mean Platelet Volume 11.3 fL (7.4-10.4); Platelet Count 149 K/uL (130-400); Red Blood Count 4.19 M/uL (4.7-6.1)
[2020-06-24 06:31] LABS: BUN Creatinine Ratio 14.3 (10-20); Calcium 8.8 mg/dl (8.5-10.1); Creatinine Clr Calc Pharmacy 82.3 ml/min; Est GFR (Non-African American) 92.3; Magnesium 2.1 mg/dl (1.8-2.4); Potassium 4.1 mmol/L (3.5-5.1)
[2020-06-24] MEDS ORDERED: SODIUM PHOSPHATE 3 MMOL/1 ML INFUSION IV STA (07:08)
[2020-06-24 07:19] LABS: Phosphorus 1.4 mg/dl (2.5-4.9)
[2020-06-24] MEDS ORDERED: SODIUM PHOSPHATE 21 MMOL in SODIUM CHLORIDE 0.9% 500 ML IV ONE (07:30)
--- NOTE | 2020-06-24 07:34 | Surgery Progress Note ---
Date of Service June 24, 2020 Assessment & Plan (1) Small bowel obstruction: -conservative measures with hydration and NGT have been implemented -as clinical improvement noted, will d/c NGT and start on clears Admission and Anticipated Discharge Date Admission Date: June 21, 2020 Subjective Pt. notes last night he had a BM and continues to pass flatus. No abdominal pain. No N/V. Physical Exam Constitutional: well developed and well nourished; no acute distress Respiratory: normal respiratory effort; no respiratory distress and no labored breathing Cardiovascular: Rate/Rhythm: regular rate and regular rhythm Gastrointestinal (Abdomen): Inspection/Auscultation: + hypoactive bowel sounds Percussion/Palpation: abdomen soft; abdomen nontender no pain with palpation Musculoskeletal: no calf pain Results & Data ([facility]) Vital Signs (Past 12 Hours) Vital Signs Temp Pulse Resp BP Pulse Ox 06/24/20 07:26 36.8 C 63 16 153/86 H 96 06/23/20 23:42 36.7 C 66 18 158/79 H 95 PG Care Time/CCT Total # of Minutes Spent Total Time Spent with Patient: Total time spent is greater than 50% in coordination of care (as documented) at patient's floor/unit and/or counseling patient: Coding Level of Care Code 23182 Subseq Hosp Care Lvl 1 Diagnoses Small bowel obstruction K56.609
[2020-06-24] MEDS: PANTOprazole 40 MG in SYRINGE 0 ML IV SCH (07:37)
[2020-06-24] MEDS: FAMOTIDINE 20 MG in SYRINGE 3 ML IV SCH ×2 (07:38→22:11)
[2020-06-24] MEDS: HEPARIN SOD 5,000 UNIT/0.5 ML VIAL SQ SCH ×2 (07:38→21:19)
[2020-06-24] MEDS ORDERED: POTASSIUM PHOS 3 MMOL/1 ML INFUSION IV STA (08:58)
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
[2020-06-24] MEDS: SIMVASTATIN 10 MG TAB PO SCH (21:19)
[2020-06-25 06:04] LABS: Basophils # (auto) 0.03 K/uL (0-0.2); Basophils % (auto) 0.5 %; Eosinophils % (auto) 3.5 %; Hematocrit (blood only) 38.2 % (42-52); Hemoglobin 13.2 g/dL (14.0-18.0); Immature Granulocytes # (auto) 0.02 K/uL (0.00-0.02); Immature Granulocytes % (auto) 0.3 %; Lymphocytes # (auto) 1.36 K/uL (1.2-3.4); Lymphocytes % (auto) 23.5 %; Mean Corpuscular Hemoglobin 32.7 pg (25-34); Mean Corpuscular Hgb Conc 34.6 g/dL (32-36); Mean Corpuscular Volume 94.6 fL (80-100); Mean Platelet Volume 11.3 fL (7.4-10.4); Monocytes # (auto) 0.62 K/uL (0.11-0.59); Monocytes % (auto) 10.7 %; Neutrophils # (auto) 3.55 K/uL (1.4-6.5); Neutrophils % (auto) 61.5 %; Platelet Count 156 K/uL (130-400); RDW Coefficient of Variation 12.8 % (11.5-14.5); RDW Standard Deviation 44.2 fL (36.4-46.3); Red Blood Count 4.04 M/uL (4.7-6.1); White Blood Count 5.78 K/uL (4.8-10.8)
[2020-06-25 06:33] LABS: Albumin Level 2.7 gm/dl (3.4-5.0); BUN Creatinine Ratio 9.3 (10-20); Calcium 8.4 mg/dl (8.5-10.1); Creatinine Clr Calc Pharmacy 73.8 ml/min; Est GFR (African American) 102.3; Est GFR (Non-African American) 88.3; Potassium 3.4 mmol/L (3.5-5.1)
[2020-06-25 06:36] LABS: Albumin Globulin Ratio 0.7 (0.9-2); Bilirubin,Total 1.5 mg/dl (0.2-1); Globulin 3.8 gm/dl (2.5-4.0); Total Protein 6.5 gm/dl (6.4-8.2)
--- NOTE | 2020-06-25 07:36 | Surgery Progress Note ---
Date of Service June 25, 2020 Assessment & Plan (1) Small bowel obstruction: -as pt. has tolerated liquid will plan on advancing diet further and if tolerated can be d/c home Admission and Anticipated Discharge Date Admission Date: June 21, 2020 Subjective Pt. denies N/V since NGT removed yesterday. he is tolerating liquids without worsening abdominal pain. Physical Exam Constitutional: well developed and well nourished; no acute distress Respiratory: normal respiratory effort; no respiratory distress and no labored breathing Cardiovascular: Rate/Rhythm: regular rate and regular rhythm Gastrointestinal (Abdomen): Inspection/Auscultation: normal bowel sounds Percussion/Palpation: abdomen soft; abdomen nontender Results & Data ([facility]) Vital Signs (Past 12 Hours) Vital Signs Temp Pulse Resp BP Pulse Ox 06/25/20 06:19 36.9 C 66 20 159/82 H 97 06/24/20 22:22 36.8 C 63 20 137/79 94 PG Care Time/CCT Total # of Minutes Spent Total Time Spent with Patient: Total time spent is greater than 50% in coordination of care (as documented) at patient's floor/unit and/or counseling patient: Coding Level of Care Code 91338 Subseq Hosp Care Lvl 1 Diagnoses Small bowel obstruction K56.609
[2020-06-25] MEDS ORDERED: POTASSIUM CHLORIDE 20 MEQ TABCR PO ONE (08:45)
[2020-06-25] MEDS: PANTOprazole 40 MG in SYRINGE 0 ML IV SCH (09:07)
[2020-06-25] MEDS: HEPARIN SOD 5,000 UNIT/0.5 ML VIAL SQ SCH (09:07)
[2020-06-25] MEDS: FAMOTIDINE 20 MG in SYRINGE 3 ML IV SCH (09:14)
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
== END 2020-06-25 16:23 | disposition home or self-care (01) | DRG 389 ==
LOC: ED 15:25 → SUATTDRO 19:53 → 3N 19:53

== ENCOUNTER 2024-05-02 14:16 | Inpatient (IN) ==
[2024-05-02] MEDS: MoRPHine SULFATE 10 MG/ML CARP/VIAL IV STA ×2 (14:49→17:12)
[2024-05-02] MEDS: ONDANSETRON INJ 2 MG/ML 2 ML VIAL IV STA (14:49)
[2024-05-02] MEDS: SODIUM CHLORIDE 0.9% 500 ML IV ONE (14:50)
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
[2024-05-02 15:00] LABS: Hematocrit (blood only) 50.7 % (42.0-52.0); Hemoglobin 17.2 g/dl (14.0-18.0); Mean Corpuscular Hgb Conc 33.9 g/dL (32.0-36.0); Mean Corpuscular Volume 94.4 fL (80.0-100.0); Mean Platelet Volume 11.5 fL (9.4-12.4); Platelet Count 180 K/uL (130-400); RDW Standard Deviation 45.1 fL (36.4-46.3); Red Blood Count 5.37 M/uL (4.70-6.10); White Blood Count 11.52 K/ul (4.8-10.8)
[2024-05-02 15:14] LABS: Albumin Globulin Ratio 1.3 (0.9-2); Albumin Level 4.8 gm/dl (3.4-5.0); BUN Creatinine Ratio 16.8 (10-20); Bilirubin,Total 1.7 mg/dl (0.2-1.0); Calcium 10.5 mg/dl (8.6-10.3); Creatinine Clr Calc Pharmacy 50.5 ml/min; Est GFR (African American) 76.1 ml/min; Est GFR (Non-African American) 65.7 ml/min; Globulin 3.7 gm/dl (2.5-4.0); Potassium 3.6 mmol/L (3.5-5.1); Total Protein 8.5 gm/dl (6.0-8.3)
[2024-05-02 15:16] LABS: Basophils # (auto) 0.03 K/uL (0.00-0.20); Basophils % (auto) 0.3 %; Immature Granulocytes # (auto) 0.02 K/uL (0.01-0.20); Immature Granulocytes % (auto) 0.2 %; Lymphocytes # (auto) 0.37 K/uL (1.20-3.40); Lymphocytes % (auto) 3.2 %; Monocytes # (auto) 0.53 K/uL (0.11-0.59); Monocytes % (auto) 4.6 %; Neutrophils # (auto) 10.57 K/uL (1.40-6.50); Neutrophils % (auto) 91.7 %
[2024-05-02] MEDS: OPTIRAY 320 100ml IV ONE (15:35)
--- NOTE | 2024-05-02 16:04 | CT Scan Report ---
CT OF THE ABDOMEN AND PELVIS WITH CONTRAST CLINICAL HISTORY: Abdominal pain. COMPARISON STUDY: CT of the abdomen and pelvis June 21, 2020 and KUB June 23, 2021. TECHNIQUE: Following IV administration of 91 mL of Optiray, axial images of the abdomen and pelvis we re obtained from the lung bases to the proximal femurs. Images were reviewed in the axial, sagittal, and coronal planes. IV contrast was administered without complication. Automated exposure control wa s utilized for the study. A dose lowering technique was utilized adhering to the principles of ALARA . CT DOSE: 664.37 mGy.cm FINDINGS: There is a calcified granuloma within the right lower lobe. The esophagus is mildly dilated and fluid-filled. The stomach is moderately distended and fluid-filled. The proximal to mid small chelsie wel is moderately dilated and fluid-filled. Transition point within the right lower quadrant, within the mid ileum on image 251 of 345 is present. Small bowel feces sign is present. Distal small bowel i s decompressed. Associated mesenteric edema and a small amount of fluid is present. There is no free air or pneumatosis. There is no portal venous gas. Several ventral hernias contain small and large chlesie wel, as before. These hernias do not result in the bowel obstruction. Mild intrahepatic biliary ducta l dilatation is similar to prior exam and likely related to cholecystectomy. Spleen, adrenal glands, kidneys and pancreas are normal. There is no lymphadenopathy. The appendix may be surgically absent. IMPRESSION: 1. Findings consistent with a small bowel obstruction with transition point within the mid ileum, wit hin the right lower quadrant. Associated mesenteric edema and fluid. No pneumatosis, free air or port al venous gas. Distended, fluid-filled stomach and esophagus. Nasogastric tube placement might be con sidered. 2. No change in appearance of multiple ventral abdominal wall hernias which contain loops of small an d large bowel. These hernias do not result in the bowel obstruction. ACT 112: Negative or not required by law. Electronically signed by: Romaine Viera M.D. 05/02/2024 4:02 PM
--- NOTE | 2024-05-02 16:29 | Surgery Consultation ---
Date of Consultation May 02, 2024 Assessment & Plan (1) Small intestine obstruction: 79-year-old gentleman with a small bowel obstruction. this is most likely due to adhesions. He has been treated conservatively for this in the past. Recommend conservative management with IV fluids, n.p.o., NG tube placement. We will await the return of bowel function. We will follow along while he is in the hospital. History of Present Illness Reason for Consultation: small bowel obstruction Requesting Physician: Omar James MD Attending Physician: Omar James MD History of Present Illness 79-year-old gentleman with a history of many exploratory laparotomy and bowel surgeries due to a shrapnel injury in [place] presents with Diffuse abdominal pain after eating starting yesterday. His last bowel movement was yesterday. He feels that this is a small bowel obstruction. He has had a few small bowel obstructions in the past, most recently in 2019. This was treated conservatively. He denies fevers or chills. He denies nausea or vomiting. He denies other complaints. Allergies Allergy/AdvReac Type Severity Reaction Status Date / Time No Known Allergies Allergy Unverified 06/21/20 16:44 Home Medications Medication Instructions Recorded Confirmed Type acetaminophen 325 mg tablet 325 mg PO QID 06/21/20 06/21/20 History (Tylenol) cholecalciferol (vitamin D3) 25 25 mcg PO BID 06/21/20 06/21/20 History mcg (1,000 unit) capsule (Vitamin D3) docusate sodium 100 mg capsule 100 mg PO DAILY 06/21/20 06/21/20 History multivitamin 1 tab PO DAILY 06/21/20 06/21/20 History omeprazole 40 mg capsule,delayed 80 mg PO DAILY 06/21/20 06/21/20 History release simvastatin 20 mg tablet 10 mg PO HS 06/21/20 06/21/20 History tramadol 50 mg tablet 50 mg PO Q6H PRN Pain 06/21/20 06/21/20 History Patient History Social History Smoking Status: Never smoker Hx Alcohol Use: No Hx Substance Use: No Preferred Language: Hebrew Communication Ability: Effective 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 Beliefs That Will Affect Care: None Current Living Situation: Spouse Feels Safe at Home: Yes Assistive Devices: None Review of Systems Review of Systems: All systems reviewed & are unremarkable except as noted in HPI & below Physical Exam Constitutional: WD/WN, vitals as above Eyes: PERRL, conjunctivae normal, anicteric sclerae Neck: trachea midline, no thyromegaly Respiratory: normal respiratory effort; no respiratory distress and no labored breathing Cardiovascular: Rate/Rhythm: regular rate and regular rhythm Gastrointestinal (Abdomen): Inspection/Auscultation: abdomen normal to inspection and + abdomen distended Percussion/Palpation: + abdomen tender ( Mild diffuse) and abdomen soft; no guarding and abdomen not rigid Skin: no rashes, warm and dry Psychiatric: A+Ox3, euthymic affect Results & Data Vital Signs (Past 12 Hours) Vital Signs Temp Pulse Pulse Resp BP BP Pulse Ox 05/02/24 16:03 94 H 20 161/103 H 95 05/02/24 15:52 95 H 20 95 05/02/24 14:36 95 H 05/02/24 14:35 99 H 22 180/117 H 05/02/24 14:18 36.1 C L 103 H 18 157/98 H 95 O2 Del Method 05/02/24 16:03 Room Air 05/02/24 15:52 Room Air 05/02/24 14:36 05/02/24 14:35 05/02/24 14:18 Room Air Laboratory Results 05/02/24 Range/Units 14:38 WBC 11.52 H (4.8-10.8) K/ul RBC 5.37 (4.70-6.10) M/uL Hgb 17.2 (14.0-18.0) g/dl Hct 50.7 (42.0-52.0) % MCV 94.4 (80.0-100.0) fL MCH 32.0 (25.0-34.0) pg MCHC 33.9 (32.0-36.0) g/dL RDW Std Deviation 45.1 (36.4-46.3) fL RDW Coeff of Khris 13.0 (11.5-14.5) % Plt Count 180 (130-400) K/uL MPV 11.5 (9.4-12.4) fL Immature Gran % (Auto) 0.2 % Neut % (Auto) 91.7 % Lymph % (Auto) 3.2 % [place] % (Auto) 4.6 % Eos % (Auto) 0.0 % Baso % (Auto) 0.3 % Neut # (Auto) 10.57 H (1.40-6.50) K/uL Lymph # (Auto) 0.37 L (1.20-3.40) K/uL [place] # (Auto) 0.53 (0.11-0.59) K/uL Eos # (Auto) 0.00 (0.00-0.50) K/uL Baso # (Auto) 0.03 (0.00-0.20) K/uL Immature Gran # (Auto) 0.02 (0.01-0.20) K/uL Sodium 135 L (136-145) mmol/L Potassium 3.6 (3.5-5.1) mmol/L Chloride 97 L (98-107) mmol/L Carbon Dioxide 27 (21-32) mmol/L Anion Gap 11 (3-11) BUN 18 (6-23) mg/dl Creatinine 1.07 (0.6-1.4) mg/dl Est Cr Clr Drug Dosing 50.5 ml/min Est GFR ( Amer) 76.1 ml/min Est GFR (Non-Af Amer) 65.7 ml/min BUN/Creatinine Ratio 16.8 (10-20) Glucose 175 H (70-99(Fasting)) mg/dl Calcium 10.5 H (8.6-10.3) mg/dl Total Bilirubin 1.7 H (0.2-1.0) mg/dl AST 26 (13-39) U/L ALT 21 (7-52) U/L Alkaline Phosphatase 106 H (34-104) U/L Total Protein 8.5 H (6.0-8.3) gm/dl Albumin 4.8 (3.4-5.0) gm/dl Globulin 3.7 (2.5-4.0) gm/dl Albumin/Globulin Ratio 1.3 (0.9-2) Lipase 12 (11-82) U/L Diagnostic Findings CT OF THE ABDOMEN AND PELVIS WITH CONTRAST CLINICAL HISTORY: Abdominal pain. COMPARISON STUDY: CT of the abdomen and pelvis June 21, 2020 and KUB June 23, 2021. TECHNIQUE: Following IV administration of 91 mL of Optiray, axial images of the abdomen and pelvis were obtained from the lung bases to the proximal femurs. Images were reviewed in the axial, sagittal, and coronal planes. IV contrast was administered without complication. Automated exposure control was utilized for the study. A dose lowering technique was utilized adhering to the principles of ALARA. CT DOSE: 664.37 mGy.cm FINDINGS: There is a calcified granuloma within the right lower lobe. The esophagus is mildly dilated and fluid-filled. The stomach is moderately distended and fluid-filled. The proximal to mid small bowel is moderately dilated and fluid-filled. Transition point within the right lower quadrant, within the mid ileum on image 251 of 345 is present. Small bowel feces sign is present. Distal small bowel is decompressed. Associated mesenteric edema and a small amount of fluid is present. There is no free air or pneumatosis. There is no portal venous gas. Several ventral hernias contain small and large bowel, as before. These hernias do not result in the bowel obstruction. Mild intrahepatic biliary ductal dilatation is similar to prior exam and likely related to cholecystectomy. Spleen, adrenal glands, kidneys and pancreas are normal. There is no lymphadenopathy. The appendix may be surgically absent. IMPRESSION: 1. Findings consistent with a small bowel obstruction with transition point within the mid ileum, within the right lower quadrant. Associated mesenteric edema and fluid. No pneumatosis, free air or portal venous gas. Distended, fluid-filled stomach and esophagus. Nasogastric tube placement might be considered. 2. No change in appearance of multiple ventral abdominal wall hernias which contain loops of small and large bowel. These hernias do not result in the bowel obstruction. ACT 112: Negative or not required by law. Electronically signed by: Romaine Viera M.D. 05/02/2024 4:02 PM
--- NOTE | 2024-05-02 16:56 | History & Physical Report ---
Date of Service May 02, 2024 Assessment & Plan (1) Small intestine obstruction: Plan: Recurrent. N.p.o. with IV fluids. NG tube decompression. Surgical reconsultation. Serial labs (2) Hyperlipemia: Plan: Statin therapy is temporarily on hold (3) GERD (gastroesophageal reflux disease): Plan: IV Pepcid while hospitalized Plan Eventual discharge to home History of Present Illness Chief Complaint: Abdominal discomfort and distention, nausea and vomiting Primary Care Provider: NO PCP 79-year-old male with previous multiple abdominal surgeries for shrapnel wounds suffered in the [place]. He has had multiple small bowel obstructions over the years. He presents again with recurrent nausea and vomiting and abdominal distention. There is evidence of recurrent small bowel obstruction. He was seen in the ED and will have an NG tube placed. He is n.p.o. with IV fluids. General surgery has been consulted. No recent hematemesis, melena, hematochezia Allergies Allergy/AdvReac Type Severity Reaction Status Date / Time No Known Allergies Allergy Verified 05/02/24 16:47 Home Medications Medication Instructions Recorded Confirmed Type multivitamin 1 tab PO DAILY 06/21/20 05/02/24 History tramadol 50 mg tablet 50 mg PO BID PRN Pain 06/21/20 05/02/24 History cholecalciferol (vitamin D3) 10 10 mcg PO BID 05/02/24 05/02/24 History mcg (400 unit) capsule (Vitamin D3) diclofenac sodium 1 % topical gel 2 g topical QID PRN Pain 05/02/24 05/02/24 History latanoprost 0.005 % eye drops 1 drp OPB HS 05/02/24 05/02/24 History omeprazole 20 mg tablet,delayed 20 mg PO DAILYBB 05/02/24 05/02/24 History release simvastatin 40 mg tablet 40 mg PO PM 05/02/24 05/02/24 History triamcinolone acetonide 0.025 % 1 applic topical BID PRN Skin 05/02/24 05/02/24 History topical cream Irritation Past Med/Surg History Problem List (Updated 05/02/24 @ 16:31 by Waqar Baker MD) Small intestine obstruction Hyperbilirubinemia Hypokalemia DVT prophylaxis Hyperlipemia GERD (gastroesophageal reflux disease) LEATHA (acute kidney injury) Partial small bowel obstruction Social History Smoking Status: Never smoker Hx Alcohol Use: No Hx Substance Use: No Preferred Language: Greek Communication Ability: Effective 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 No hematemesis. No melena. No hematochezia -no urinary retention, no urinary incontinence, no dysuria, no hematuria Musculoskeletal-no joint pain, no muscle tenderness Skin-no bruising, no rashes, no pruritus Neuro-no isolated weakness, no paresthesia, no weakness Psych-no depression, no anxiety Physical Exam 2 Physical Exam: General-alert and oriented x3, no fever, no chills HEENT-head atraumatic and normocephalic, pupils equal and reactive to light, extraocular muscles intact Neck-no lymphadenopathy or thyromegaly, trachea midline Chest-clear to auscultation. No rales, wheezing or rhonchi Cardiac-regular rate and rhythm, normal S1 and S2 Abdomen-multiple scars and ventral hernias from previous surgeries. Slightly distended. Bowel sounds are active. No focal tenderness Extremities-no cyanosis, clubbing, or edema Neuro-cranial nerves II through XII intact, motor and sensory function within normal limits, strength symmetrical, no focal deficits Psych-normal affect, normal mood Results & Data Results & Data Vital Signs (Past 12 Hours) Vital Signs Temp Pulse Pulse Resp BP BP Pulse Ox 05/02/24 16:03 94 H 20 161/103 H 95 05/02/24 15:52 95 H 20 95 05/02/24 14:36 95 H 05/02/24 14:35 99 H 22 180/117 H 05/02/24 14:18 36.1 C L 103 H 18 157/98 H 95 O2 Del Method 05/02/24 16:03 Room Air 05/02/24 15:52 Room Air 05/02/24 14:36 05/02/24 14:35 05/02/24 14:18 Room Air Laboratory Results 05/02/24 14:38 05/02/24 14:38 Code Status & VTE Plan Code Status Full PG Care Time/CCT Total # of Minutes Spent Total Time Spent with Patient: Total time spent is greater than 50% in coordination of care (as documented) at patient's floor/unit and/or counseling patient: Coding Level of Care Code 62781 INT INP/OBS CARE 3/75MIN Diagnoses Small intestine obstruction K56.609 Hyperlipemia E78.5 GERD (gastroesophageal reflux disease) K21.9
--- NOTE | 2024-05-02 18:01 | XRay Report ---
XR chest 1V portable CLINICAL HISTORY: NG tube verify COMPARISON STUDY: Chest radiograph November 02, 2017. FINDINGS: Metallic densities project over the right hemithorax. These are unchanged. There is no pneu mothorax or pleural effusion. There is no consolidation to suggest pneumonia. No evidence for pulmona ry edema. Tip of nasogastric tube is depicted on the KUB which will be reported separately. The tip i s within the body of the stomach. IMPRESSION: 1. No acute cardiopulmonary findings. 2. Tip of nasogastric tube within the body of the stomach, as shown on KUB which will be reported sep arately. ACT 112: Negative or not required by law. Electronically signed by: Romaine Viera M.D. 05/02/2024 6:00 PM
--- NOTE | 2024-05-02 18:02 | XRay Report ---
KUB CLINICAL HISTORY: NG tube COMPARISON STUDY: CT of the abdomen and pelvis performed earlier today. FINDINGS: The tip of the nasogastric tube is within the body of the stomach. Small bowel dilatation i s better depicted on the recently performed CT. Incidental note is made of excreted contrast within t he collecting systems and proximal ureters from recent contrast-enhanced CT. IMPRESSION: Appropriately positioned nasogastric tube. Tip within the body of the stomach. ACT 112: Negative or not required by law. Electronically signed by: Romaine Viera M.D. 05/02/2024 6:01 PM
[2024-05-02] MEDS ORDERED: ONDANSETRON INJ 2 MG/ML 2 ML VIAL IV PRN (20:20)
[2024-05-02] MEDS: SODIUM CHLORIDE 0.9% 1,000 ML IV SCH (21:14)
[2024-05-02] MEDS: ACETAMINOPHEN 1,000 MG/100 ML VIAL IV PRN (21:14)
[2024-05-02] MEDS: FAMOTIDINE 20MG IV PUSH 20 MG/5 ML SYR IV SCH (21:15)
[2024-05-02] MEDS: HEPARIN SOD 5,000 UNIT/0.5 ML VIAL SQ SCH (21:15)
[2024-05-02 21:34] LABS: Basophils # (auto) 0.01 K/uL (0.00-0.20); Basophils % (auto) 0.2 %; Eosinophils # (auto) 0.01 K/uL (0.00-0.50); Eosinophils % (auto) 0.2 %; Hematocrit (blood only) 47.4 % (42.0-52.0); Hemoglobin 16.2 g/dl (14.0-18.0); Immature Granulocytes # (auto) 0.01 K/uL (0.01-0.20); Immature Granulocytes % (auto) 0.2 %; Lymphocytes # (auto) 0.73 K/uL (1.20-3.40); Lymphocytes % (auto) 14.1 %; Mean Corpuscular Hemoglobin 32.1 pg (25.0-34.0); Mean Corpuscular Hgb Conc 34.2 g/dL (32.0-36.0); Mean Corpuscular Volume 93.9 fL (80.0-100.0); Mean Platelet Volume 11.8 fL (9.4-12.4); Monocytes # (auto) 0.61 K/uL (0.11-0.59); Monocytes % (auto) 11.8 %; Neutrophils # (auto) 3.79 K/uL (1.40-6.50); Neutrophils % (auto) 73.5 %; Platelet Count 176 K/uL (130-400); RDW Standard Deviation 44.2 fL (36.4-46.3); Red Blood Count 5.05 M/uL (4.70-6.10); White Blood Count 5.16 K/ul (4.8-10.8)
[2024-05-02 21:41] LABS: Albumin Globulin Ratio 1.2 (0.9-2); Albumin Level 4.2 gm/dl (3.4-5.0); BUN Creatinine Ratio 20.2 (10-20); Bilirubin,Total 2.1 mg/dl (0.2-1.0); Calcium 9.6 mg/dl (8.6-10.3); Creatinine Clr Calc Pharmacy 57.5 ml/min; Est GFR (Non-African American) 76.8 ml/min; Globulin 3.4 gm/dl (2.5-4.0); Potassium 4.3 mmol/L (3.5-5.1); Total Protein 7.6 gm/dl (6.0-8.3)
[2024-05-03] MEDS: KETOROLAC TROMETHAMINE 15 MG/ML VIAL IV ONE (01:39)
[2024-05-03 07:34] LABS: Basophils # (auto) 0.03 K/uL (0.00-0.20); Basophils % (auto) 1.1 %; Eosinophils # (auto) 0.05 K/uL (0.00-0.50); Eosinophils % (auto) 1.8 %; Hematocrit (blood only) 43.8 % (42.0-52.0); Hemoglobin 14.8 g/dl (14.0-18.0); Lymphocytes # (auto) 1.02 K/uL (1.20-3.40); Lymphocytes % (auto) 36.4 %; Mean Corpuscular Hemoglobin 31.9 pg (25.0-34.0); Mean Corpuscular Hgb Conc 33.8 g/dL (32.0-36.0); Mean Corpuscular Volume 94.4 fL (80.0-100.0); Mean Platelet Volume 11.5 fL (9.4-12.4); Monocytes # (auto) 0.53 K/uL (0.11-0.59); Monocytes % (auto) 18.9 %; Neutrophils # (auto) 1.17 K/uL (1.40-6.50); Neutrophils % (auto) 41.8 %; Platelet Count 159 K/uL (130-400); RDW Coefficient of Variation 13.1 % (11.5-14.5); RDW Standard Deviation 44.7 fL (36.4-46.3); Red Blood Count 4.64 M/uL (4.70-6.10)
[2024-05-03 08:18] LABS: Appearance Urine Clear (Clear); Bilirubin Urine 1+ (Negative); Blood Urine Negative (Negative); Color Urine Yellow; Glucose Urine UA Negative (Negative); Ketones Urine Trace (Negative); Leukocyte Esterase Urine Negative (Negative); Nitrite Urine Negative (Negative); Protein Urine 1+ (Negative); Specific Gravity Urine >= 1.030 (1.000-1.030); Urobilinogen Urine Negative (Negative)
[2024-05-03 08:27] LABS: RBC Urine 0-2 /hpf (0-2); WBC Urine 0-5 /hpf (0-5)
[2024-05-03 08:28] LABS: Bacteria Urine None Seen (None Seen); Mucus Urine Present (None Prsent)
[2024-05-03 10:20] LABS: Albumin Level 3.7 gm/dl (3.4-5.0); Bilirubin,Total 2.5 mg/dl (0.2-1.0); Calcium 8.8 mg/dl (8.6-10.3); Potassium 3.7 mmol/L (3.5-5.1)
[2024-05-03 10:38] LABS: Albumin Globulin Ratio 1.3 (0.9-2); BUN Creatinine Ratio 22.4 (10-20); Creatinine Clr Calc Pharmacy 50.5 ml/min; Est GFR (African American) 76.1 ml/min; Est GFR (Non-African American) 65.7 ml/min; Globulin 2.9 gm/dl (2.5-4.0); Total Protein 6.6 gm/dl (6.0-8.3)
--- NOTE | 2024-05-03 10:39 | Surgery Progress Note ---
Date of Service May 03, 2024 Assessment & Plan (1) Small intestine obstruction: Plan: avss NGT with 1700 cc output since placement (likely not accurate as patient drinking water) NO return of bowel function yet Plan: Continue conservative management NGT TO LIS, clamp to ambulate pain management as needed limit water intake, okay for sips and chips Admission and Anticipated Discharge Date Admission Date: May 02, 2024 Subjective felling better, severe pain resolved, waves of pain more like a spasm in mid abdomen no nausea or vomiting no flatus yet has not ambulated hallway due to NGT drinking water Physical Exam Constitutional: WD/WN, vitals as above cooperative and comfortable; no acute distress and not ill appearing Respiratory: normal respiratory effort; no respiratory distress Gastrointestinal (Abdomen): Inspection/Auscultation: abdomen normal to inspection and + abdominal surgical scar (midline laparotomy scars); abdomen not distended Percussion/Palpation: abdomen soft; abdomen nontender, no guarding and abdomen not rigid NGT with dark green bilious output Skin: no rashes, warm and dry Psychiatric: A+Ox3, euthymic affect Results & Data Vital Signs (Past 12 Hours) Vital Signs Temp Pulse Resp BP Pulse Ox O2 Del Method 05/03/24 07:41 36.5 C 70 16 129/71 95 Room Air Laboratory Results 05/03/24 05/03/24 05/02/24 Range/Units 07:15 06:05 20:59 WBC 2.80 L 5.16 (4.8-10.8) K/ul RBC 4.64 L 5.05 (4.70-6.10) M/uL Hgb 14.8 16.2 (14.0-18.0) g/dl Hct 43.8 47.4 (42.0-52.0) % MCV 94.4 93.9 (80.0-100.0) fL MCH 31.9 32.1 (25.0-34.0) pg MCHC 33.8 34.2 (32.0-36.0) g/dL RDW Std Deviation 44.7 44.2 (36.4-46.3) fL RDW Coeff of Khris 13.1 13.0 (11.5-14.5) % Plt Count 159 176 (130-400) K/uL MPV 11.5 11.8 (9.4-12.4) fL Immature Gran % (Auto) 0.0 0.2 % Neut % (Auto) 41.8 73.5 % Lymph % (Auto) 36.4 14.1 % [place] % (Auto) 18.9 11.8 % Eos % (Auto) 1.8 0.2 % Baso % (Auto) 1.1 0.2 % Neut # (Auto) 1.17 L 3.79 (1.40-6.50) K/uL Lymph # (Auto) 1.02 L 0.73 L (1.20-3.40) K/uL [place] # (Auto) 0.53 0.61 H (0.11-0.59) K/uL Eos # (Auto) 0.05 0.01 (0.00-0.50) K/uL Baso # (Auto) 0.03 0.01 (0.00-0.20) K/uL Immature Gran # (Auto) 0.00 L 0.01 (0.01-0.20) K/uL Sodium 138 137 (136-145) mmol/L Potassium 3.7 4.3 (3.5-5.1) mmol/L Chloride 101 99 (98-107) mmol/L Carbon Dioxide 31 32 (21-32) mmol/L Anion Gap 6 6 (3-11) BUN 24 H 19 (6-23) mg/dl Creatinine 1.07 0.94 (0.6-1.4) mg/dl Est Cr Clr Drug Dosing 50.5 57.5 ml/min Est GFR ( Amer) 76.1 89.0 ml/min Est GFR (Non-Af Amer) 65.7 76.8 ml/min BUN/Creatinine Ratio 22.4 H 20.2 H (10-20) Glucose 107 H 122 H (70-99(Fasting)) mg/dl Calcium 8.8 9.6 (8.6-10.3) mg/dl Total Bilirubin 2.5 H 2.1 H (0.2-1.0) mg/dl AST 18 23 (13-39) U/L ALT 13 18 (7-52) U/L Alkaline Phosphatase 74 90 (34-104) U/L Total Protein 6.6 7.6 (6.0-8.3) gm/dl Albumin 3.7 4.2 (3.4-5.0) gm/dl Globulin 2.9 3.4 (2.5-4.0) gm/dl Albumin/Globulin Ratio 1.3 1.2 (0.9-2) Lipase (11-82) U/L Urine Color Yellow Urine Appearance Clear (Clear) Urine pH 5.0 (4.5-7.5) Ur Specific [place] >= 1.030 (1.000-1.030) Urine Protein 1+ H (Negative) Urine Glucose (UA) Negative (Negative) Urine Ketones Trace H (Negative) Urine Blood Negative (Negative) Urine Nitrite Negative (Negative) Urine Bilirubin 1+ H (Negative) Urine Urobilinogen Negative (Negative) Ur Leukocyte Esterase Negative (Negative) Urine RBC 0-2 (0-2) /hpf Urine WBC 0-5 (0-5) /hpf Ur Epithelial Cells 3-5 H (0-2) /hpf Urine Bacteria None Seen (None Seen) Urine Mucus Present A (None Prsent) 05/02/24 Range/Units 14:38 WBC 11.52 H (4.8-10.8) K/ul RBC 5.37 (4.70-6.10) M/uL Hgb 17.2 (14.0-18.0) g/dl Hct 50.7 (42.0-52.0) % MCV 94.4 (80.0-100.0) fL MCH 32.0 (25.0-34.0) pg MCHC 33.9 (32.0-36.0) g/dL RDW Std Deviation 45.1 (36.4-46.3) fL RDW Coeff of Khris 13.0 (11.5-14.5) % Plt Count 180 (130-400) K/uL MPV 11.5 (9.4-12.4) fL Immature Gran % (Auto) 0.2 % Neut % (Auto) 91.7 % Lymph % (Auto) 3.2 % [place] % (Auto) 4.6 % Eos % (Auto) 0.0 % Baso % (Auto) 0.3 % Neut # (Auto) 10.57 H (1.40-6.50) K/uL Lymph # (Auto) 0.37 L (1.20-3.40) K/uL [place] # (Auto) 0.53 (0.11-0.59) K/uL Eos # (Auto) 0.00 (0.00-0.50) K/uL Baso # (Auto) 0.03 (0.00-0.20) K/uL Immature Gran # (Auto) 0.02 (0.01-0.20) K/uL Sodium 135 L (136-145) mmol/L Potassium 3.6 (3.5-5.1) mmol/L Chloride 97 L (98-107) mmol/L Carbon Dioxide 27 (21-32) mmol/L Anion Gap 11 (3-11) BUN 18 (6-23) mg/dl Creatinine 1.07 (0.6-1.4) mg/dl Est Cr Clr Drug Dosing 50.5 ml/min Est GFR ( Amer) 76.1 ml/min Est GFR (Non-Af Amer) 65.7 ml/min BUN/Creatinine Ratio 16.8 (10-20) Glucose 175 H (70-99(Fasting)) mg/dl Calcium 10.5 H (8.6-10.3) mg/dl Total Bilirubin 1.7 H (0.2-1.0) mg/dl AST 26 (13-39) U/L ALT 21 (7-52) U/L Alkaline Phosphatase 106 H (34-104) U/L Total Protein 8.5 H (6.0-8.3) gm/dl Albumin 4.8 (3.4-5.0) gm/dl Globulin 3.7 (2.5-4.0) gm/dl Albumin/Globulin Ratio 1.3 (0.9-2) Lipase 12 (11-82) U/L Urine Color Urine Appearance (Clear) Urine pH (4.5-7.5) Ur Specific [place] (1.000-1.030) Urine Protein (Negative) Urine Glucose (UA) (Negative) Urine Ketones (Negative) Urine Blood (Negative) Urine Nitrite (Negative) Urine Bilirubin (Negative) Urine Urobilinogen (Negative) Ur Leukocyte Esterase (Negative) Urine RBC (0-2) /hpf Urine WBC (0-5) /hpf Ur Epithelial Cells (0-2) /hpf Urine Bacteria (None Seen) Urine Mucus (None Prsent)
[2024-05-03] MEDS: KETOROLAC TROMETHAMINE 15 MG/ML VIAL IV PRN (15:02)
--- NOTE | 2024-05-03 15:37 | Hospitalist Progress Note ---
Date of Service May 03, 2024 Assessment & Plan (1) Small intestine obstruction: Plan: Recurrent. N.p.o. with IV fluids. NG tube decompression. Surgical consultation and recommendations appreciated. Will obtain KUB x-ray tomorrow morningMay 04. Serial labs (2) Hyperlipemia: Plan: Statin therapy is temporarily on hold (3) GERD (gastroesophageal reflux disease): Plan: IV Pepcid while hospitalized Plan Eventual discharge to home Admission and Anticipated Discharge Date Admission Date: May 02, 2024 Subjective Alert and oriented. Ambulating. He states he is passing a little gas. Surgery entry noted. Will get KUB tomorrow May 04 Review of Systems 2 Review of Systems: Constitutional-no fever or chills ENT-no blurred vision, no double vision, no epistaxis, no sore throat Respiratory-no cough, no wheezing, no shortness of breath Cardiac-no palpitations, no chest pain, no syncope GI-nausea and vomiting. No hematemesis. No melena. No hematochezia -no urinary retention, no urinary incontinence, no dysuria, no hematuria Musculoskeletal-no joint pain, no muscle tenderness Skin-no bruising, no rashes, no pruritus Neuro-no isolated weakness, no paresthesia, no weakness Psych-no depression, no anxiety Physical Exam 2 Physical Exam: General-alert and oriented x3, no fever, no chills HEENT-head atraumatic and normocephalic, pupils equal and reactive to light, extraocular muscles intact Neck-no lymphadenopathy or thyromegaly, trachea midline Chest-clear to auscultation. No rales, wheezing or rhonchi Cardiac-regular rate and rhythm, normal S1 and S2 Abdomen-multiple scars and ventral hernias from previous surgeries. Slightly distended. Bowel sounds are active. No focal tenderness Extremities-no cyanosis, clubbing, or edema Neuro-cranial nerves II through XII intact, motor and sensory function within normal limits, strength symmetrical, no focal deficits Psych-normal affect, normal mood Results & Data Results & Data Vital Signs (Past 12 Hours) Vital Signs Temp Pulse Resp BP Pulse Ox O2 Del Method 05/03/24 14:45 37.1 C 75 15 147/80 H 96 Room Air 05/03/24 07:41 36.5 C 70 16 129/71 95 Room Air Laboratory Results 05/03/24 07:15 07/01/24 07:15 PG Care Time/CCT Total # of Minutes Spent Total Time Spent with Patient: Total time spent is greater than 50% in coordination of care (as documented) at patient's floor/unit and/or counseling patient: Coding Level of Care Code 79861 SUB INP/OBS CARE 2/35MIN Diagnoses Small intestine obstruction K56.609 Hyperlipemia E78.5 GERD (gastroesophageal reflux disease) K21.9
[2024-05-04 07:22] LABS: Basophils # (auto) 0.04 K/uL (0.00-0.20); Eosinophils # (auto) 0.09 K/uL (0.00-0.50); Eosinophils % (auto) 2.2 %; Hematocrit (blood only) 42.5 % (42.0-52.0); Hemoglobin 14.4 g/dl (14.0-18.0); Immature Granulocytes # (auto) 0.01 K/uL (0.01-0.20); Immature Granulocytes % (auto) 0.2 %; Lymphocytes # (auto) 0.95 K/uL (1.20-3.40); Lymphocytes % (auto) 23.6 %; Mean Corpuscular Hemoglobin 32.2 pg (25.0-34.0); Mean Corpuscular Hgb Conc 33.9 g/dL (32.0-36.0); Mean Corpuscular Volume 95.1 fL (80.0-100.0); Mean Platelet Volume 11.2 fL (9.4-12.4); Monocytes # (auto) 0.64 K/uL (0.11-0.59); Monocytes % (auto) 15.9 %; Neutrophils # (auto) 2.29 K/uL (1.40-6.50); Neutrophils % (auto) 57.1 %; Platelet Count 144 K/uL (130-400); RDW Coefficient of Variation 13.1 % (11.5-14.5); Red Blood Count 4.47 M/uL (4.70-6.10); White Blood Count 4.02 K/ul (4.8-10.8)
[2024-05-04 08:16] LABS: Albumin Globulin Ratio 1.2 (0.9-2); Albumin Level 3.4 gm/dl (3.4-5.0); BUN Creatinine Ratio 33.7 (10-20); Bilirubin,Total 1.7 mg/dl (0.2-1.0); Calcium 8.4 mg/dl (8.6-10.3); Creatinine Clr Calc Pharmacy 62.9 ml/min; Est GFR (African American) 95.6 ml/min; Est GFR (Non-African American) 82.5 ml/min; Globulin 2.9 gm/dl (2.5-4.0); Potassium 3.4 mmol/L (3.5-5.1); Total Protein 6.3 gm/dl (6.0-8.3)
--- NOTE | 2024-05-04 12:25 | XRay Report ---
XR KUB/Abdomen 1 view CLINICAL HISTORY: SBO TECHNIQUE: 1 view of the abdomen was obtained. Comparison: Comparison is made to abdomen radiograph 05/02/2024 FINDINGS: Calcific densities compatible with nephrolithiasis are unchanged from prior exam. No ureteral or pelv ic stones are seen. The osseous structures are grossly unremarkable. A few gas dilated loops of small bowel are seen. Small stool burden is seen. IMPRESSION: A few gas dilated loops of small bowel are seen compatible with obstruction. ACT 112: Negative or not required by law. Electronically signed by: Awais Ellsworth M.D. 05/04/2024 12:24 PM
--- NOTE | 2024-05-04 13:19 | Surgery Progress Note ---
Date of Service May 04, 2024 Assessment & Plan (1) Small intestine obstruction: Plan: Plan: Continue conservative management NGT TO LIS, clamp to ambulate pain management as needed limit water intake, okay for sips and chips Discussed with Dr. Baker who agrees with above. Admission and Anticipated Discharge Date Admission Date: May 02, 2024 Subjective feeling better abdominal pain intermittent, not as severe no nausea or vomiting passed a little gas yesterday but nothing today ambulating hallway Physical Exam Constitutional: WD/WN, vitals as above cooperative and comfortable; no acute distress and not ill appearing Respiratory: normal respiratory effort; no respiratory distress Gastrointestinal (Abdomen): Inspection/Auscultation: abdomen normal to inspection, normal bowel sounds and + abdominal surgical scar; abdomen not distended Percussion/Palpation: abdomen soft; abdomen nontender, no guarding, abdomen not rigid and abdomen not firm Skin: no rashes, warm and dry Psychiatric: A+Ox3, euthymic affect Results & Data Vital Signs (Past 12 Hours) Vital Signs Temp Pulse Resp BP Pulse Ox O2 Del Method 05/04/24 08:00 36.8 C 85 18 167/83 H 95 Room Air Laboratory Results 05/04/24 Range/Units 07:05 WBC 4.02 L (4.8-10.8) K/ul RBC 4.47 L (4.70-6.10) M/uL Hgb 14.4 (14.0-18.0) g/dl Hct 42.5 (42.0-52.0) % MCV 95.1 (80.0-100.0) fL MCH 32.2 (25.0-34.0) pg MCHC 33.9 (32.0-36.0) g/dL RDW Std Deviation 46.0 (36.4-46.3) fL RDW Coeff of Khris 13.1 (11.5-14.5) % Plt Count 144 (130-400) K/uL MPV 11.2 (9.4-12.4) fL Immature Gran % (Auto) 0.2 % Neut % (Auto) 57.1 % Lymph % (Auto) 23.6 % [place] % (Auto) 15.9 % Eos % (Auto) 2.2 % Baso % (Auto) 1.0 % Neut # (Auto) 2.29 (1.40-6.50) K/uL Lymph # (Auto) 0.95 L (1.20-3.40) K/uL [place] # (Auto) 0.64 H (0.11-0.59) K/uL Eos # (Auto) 0.09 (0.00-0.50) K/uL Baso # (Auto) 0.04 (0.00-0.20) K/uL Immature Gran # (Auto) 0.01 (0.01-0.20) K/uL Sodium 139 (136-145) mmol/L Potassium 3.4 L (3.5-5.1) mmol/L Chloride 104 (98-107) mmol/L Carbon Dioxide 29 (21-32) mmol/L Anion Gap 6 (3-11) BUN 29 H (6-23) mg/dl Creatinine 0.86 (0.6-1.4) mg/dl Est Cr Clr Drug Dosing 62.9 ml/min Est GFR ( Amer) 95.6 ml/min Est GFR (Non-Af Amer) 82.5 ml/min BUN/Creatinine Ratio 33.7 H (10-20) Glucose 87 (70-99(Fasting)) mg/dl Calcium 8.4 L (8.6-10.3) mg/dl Total Bilirubin 1.7 H (0.2-1.0) mg/dl AST 16 (13-39) U/L ALT 12 (7-52) U/L Alkaline Phosphatase 68 (34-104) U/L Total Protein 6.3 (6.0-8.3) gm/dl Albumin 3.4 (3.4-5.0) gm/dl Globulin 2.9 (2.5-4.0) gm/dl Albumin/Globulin Ratio 1.2 (0.9-2) Diagnostic Findings XR KUB/Abdomen 1 view CLINICAL HISTORY: SBO TECHNIQUE: 1 view of the abdomen was obtained. Comparison: Comparison is made to abdomen radiograph 05/02/2024 FINDINGS: Calcific densities compatible with nephrolithiasis are unchanged from prior exam. No ureteral or pelvic stones are seen. The osseous structures are grossly unremarkable. A few gas dilated loops of small bowel are seen. Small stool burden is seen. IMPRESSION: A few gas dilated loops of small bowel are seen compatible with obstruction. I personally reviewed images and agree with above.
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
[2024-05-04] MEDS ORDERED: hydrALAZINE HCL 20 MG/ML VIAL IV PRN (18:29)
[2024-05-04] MEDS: POTASSIUM CHLORIDE 40 MEQ in SODIUM CHLORIDE 0.9% 1,000 ML IV SCH (19:50)
[2024-05-05] MEDS: diphenhydrAMINE 50 MG/ML VIAL IV ONE ×2 (01:32→22:38)
[2024-05-05 08:12] LABS: Basophils # (auto) 0.03 K/uL (0.00-0.20); Basophils % (auto) 0.6 %; Eosinophils # (auto) 0.09 K/uL (0.00-0.50); Eosinophils % (auto) 1.9 %; Hematocrit (blood only) 41.8 % (42.0-52.0); Hemoglobin 13.9 g/dl (14.0-18.0); Immature Granulocytes # (auto) 0.02 K/uL (0.01-0.20); Immature Granulocytes % (auto) 0.4 %; Lymphocytes # (auto) 0.71 K/uL (1.20-3.40); Lymphocytes % (auto) 14.7 %; Mean Corpuscular Hemoglobin 31.9 pg (25.0-34.0); Mean Corpuscular Hgb Conc 33.3 g/dL (32.0-36.0); Mean Corpuscular Volume 95.9 fL (80.0-100.0); Mean Platelet Volume 11.4 fL (9.4-12.4); Monocytes # (auto) 0.71 K/uL (0.11-0.59); Monocytes % (auto) 14.7 %; Neutrophils # (auto) 3.26 K/uL (1.40-6.50); Neutrophils % (auto) 67.7 %; Platelet Count 148 K/uL (130-400); RDW Coefficient of Variation 12.9 % (11.5-14.5); RDW Standard Deviation 45.9 fL (36.4-46.3); Red Blood Count 4.36 M/uL (4.70-6.10); White Blood Count 4.82 K/ul (4.8-10.8)
[2024-05-05 08:29] LABS: Albumin Globulin Ratio 1.1 (0.9-2); Albumin Level 3.3 gm/dl (3.4-5.0); BUN Creatinine Ratio 32.4 (10-20); Bilirubin,Total 1.1 mg/dl (0.2-1.0); Calcium 8.3 mg/dl (8.6-10.3); Creatinine Clr Calc Pharmacy 79.5 ml/min; Est GFR (African American) 105.3 ml/min; Est GFR (Non-African American) 90.8 ml/min; Globulin 2.9 gm/dl (2.5-4.0); Potassium 3.6 mmol/L (3.5-5.1); Total Protein 6.2 gm/dl (6.0-8.3)
--- NOTE | 2024-05-05 09:53 | Surgery Progress Note ---
Date of Service May 05, 2024 Assessment & Plan (1) Small intestine obstruction: Plan: slowly resolving (usually takes 3-4 days with NGT with past SBO admissions) Plan: Continue conservative management NGT TO LIS, clamp to ambulate pain management as needed limit water intake, okay for sips and chips Discussed with Dr. hicks who agrees with above. Admission and Anticipated Discharge Date Admission Date: May 02, 2024 Subjective had some pain this morning, took Toradol, not severe no nausea some hiccups passed some gas yesterday none so far today no bowel movement ambulating Physical Exam Constitutional: WD/WN, vitals as above cooperative and comfortable; no acute distress and not ill appearing Gastrointestinal (Abdomen): Inspection/Auscultation: normal bowel sounds and + abdominal surgical scar (multiple midline laparotomy scars); abdomen not distended Percussion/Palpation: abdomen soft; abdomen nontender, no guarding, abdomen not rigid and abdomen not firm NGT with dark green output in cannister Skin: no rashes, warm and dry Psychiatric: Orientation: alert and oriented x 3 Results & Data Vital Signs (Past 12 Hours) Vital Signs Temp Pulse Resp BP Pulse Ox O2 Del Method 05/05/24 07:41 36.7 C 81 16 152/79 H 94 Room Air Laboratory Results 05/05/24 Range/Units 07:33 WBC 4.82 (4.8-10.8) K/ul RBC 4.36 L (4.70-6.10) M/uL Hgb 13.9 L (14.0-18.0) g/dl Hct 41.8 L (42.0-52.0) % MCV 95.9 (80.0-100.0) fL MCH 31.9 (25.0-34.0) pg MCHC 33.3 (32.0-36.0) g/dL RDW Std Deviation 45.9 (36.4-46.3) fL RDW Coeff of Khris 12.9 (11.5-14.5) % Plt Count 148 (130-400) K/uL MPV 11.4 (9.4-12.4) fL Immature Gran % (Auto) 0.4 % Neut % (Auto) 67.7 % Lymph % (Auto) 14.7 % [place] % (Auto) 14.7 % Eos % (Auto) 1.9 % Baso % (Auto) 0.6 % Neut # (Auto) 3.26 (1.40-6.50) K/uL Lymph # (Auto) 0.71 L (1.20-3.40) K/uL [place] # (Auto) 0.71 H (0.11-0.59) K/uL Eos # (Auto) 0.09 (0.00-0.50) K/uL Baso # (Auto) 0.03 (0.00-0.20) K/uL Immature Gran # (Auto) 0.02 (0.01-0.20) K/uL Sodium 140 (136-145) mmol/L Potassium 3.6 (3.5-5.1) mmol/L Chloride 107 (98-107) mmol/L Carbon Dioxide 21 (21-32) mmol/L Anion Gap 12 H (3-11) BUN 22 (6-23) mg/dl Creatinine 0.68 (0.6-1.4) mg/dl Est Cr Clr Drug Dosing 79.5 ml/min Est GFR ( Amer) 105.3 ml/min Est GFR (Non-Af Amer) 90.8 ml/min BUN/Creatinine Ratio 32.4 H (10-20) Glucose 67 L (70-99(Fasting)) mg/dl Calcium 8.3 L (8.6-10.3) mg/dl Total Bilirubin 1.1 H (0.2-1.0) mg/dl AST 14 (13-39) U/L ALT 10 (7-52) U/L Alkaline Phosphatase 73 (34-104) U/L Total Protein 6.2 (6.0-8.3) gm/dl Albumin 3.3 L (3.4-5.0) gm/dl Globulin 2.9 (2.5-4.0) gm/dl Albumin/Globulin Ratio 1.1 (0.9-2)
--- NOTE | 2024-05-05 16:25 | Hospitalist Progress Note ---
Date of Service May 05, 2024 Assessment & Plan (1) Small intestine obstruction: Plan: Recurrent. Previous small bowel obstructions have resolved with n.p.o./NGT plus IV fluids. Surgical consultation and recommendations continue n.p.o. status and NG tube, allow patient walk around the room. Still n.p.o. but did have large bowel movement look to surgical colleagues regarding diet advancement Repleted potassium with potassium containing IV fluid (2) Hyperlipemia: Plan: Statin therapy is temporarily on hold (3) GERD (gastroesophageal reflux disease): Plan: IV Pepcid while hospitalized and n.p.o. Plan Plans to return home at discharge Admission and Anticipated Discharge Date Admission Date: May 02, 2024 Subjective pt has persistent but reducing abdominal pain, did have large bowel movement after ambulation Physical Exam Physical Exam: Awake alert appropriate Card exam is regular lungs are clear Abdomen is with normal active bowel sounds mildly tender in the upper quadrants no rebound no guarding Results & Data Results & Data Vital Signs (Past 12 Hours) Vital Signs Temp Pulse Resp BP Pulse Ox O2 Del Method 05/05/24 14:10 98.2 F 81 16 137/74 98 Room Air 05/05/24 07:41 98.1 F 81 16 152/79 H 94 Room Air Laboratory Results Reviewed CBC reviewed chemistry Discussed case with GERALDINE from general surgery PG Care Time/CCT Total # of Minutes Spent Total Time Spent with Patient: Total time spent is greater than 50% in coordination of care (as documented) at patient's floor/unit and/or counseling patient: Coding Level of Care Code 05244 SUB INP/OBS CARE 2/35MIN Diagnoses Small intestine obstruction K56.609 Hyperlipemia E78.5 GERD (gastroesophageal reflux disease) K21.9
[2024-05-06 07:35] VITALS: RESP 16
--- NOTE | 2024-05-06 09:39 | Surgery Progress Note ---
Date of Service May 06, 2024 Assessment & Plan (1) SBO (small bowel obstruction): Plan: Advance to full liquids, can have a low fiber diet for dinner if he tolerates this If he continues to progress, likely discharge tomorrow Admission and Anticipated Discharge Date Admission Date: May 02, 2024 Subjective Patient seen and examined, large bowel movement yesterday. Passing flatus as well. Denies abdominal pain or nausea or vomiting with clear liquids. Physical Exam Constitutional: WD/WN, vitals as above Gastrointestinal (Abdomen): Soft, nontender, distended Results & Data Vital Signs (Past 12 Hours) Vital Signs Temp Pulse Resp BP Pulse Ox O2 Del Method 05/06/24 07:34 36.6 C 71 16 134/61 95 Room Air 05/05/24 22:05 37.1 C 63 18 147/78 H 96 Room Air PG Care Time/CCT Total # of Minutes Spent Total Time Spent with Patient: Total time spent is greater than 50% in coordination of care (as documented) at patient's floor/unit and/or counseling patient: Coding Level of Care Code 77270 SUB INP/OBS CARE 25MIN Diagnoses SBO (small bowel obstruction) K56.609
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
[2024-05-06 15:10] LABS: Calcium 8.3 mg/dl (8.6-10.3); Est GFR (African American) 116.6 ml/min; Est GFR (Non-African American) 100.6 ml/min
[2024-05-06] MEDS: MELATONIN 3 MG TAB PO PRN (23:31)
[2024-05-07 06:47] LABS: Hematocrit (blood only) 38.9 % (42.0-52.0); Hemoglobin 13.2 g/dl (14.0-18.0); Mean Corpuscular Hemoglobin 31.9 pg (25.0-34.0); Mean Corpuscular Hgb Conc 33.9 g/dL (32.0-36.0); Mean Platelet Volume 10.9 fL (9.4-12.4); Platelet Count 156 K/uL (130-400); RDW Coefficient of Variation 13.1 % (11.5-14.5); RDW Standard Deviation 45.1 fL (36.4-46.3); Red Blood Count 4.14 M/uL (4.70-6.10); White Blood Count 5.48 K/ul (4.8-10.8)
[2024-05-07 07:06] LABS: BUN Creatinine Ratio 6.6 (10-20); Calcium 8.2 mg/dl (8.6-10.3); Creatinine Clr Calc Pharmacy 71.1 ml/min; Est GFR (African American) 100.6 ml/min; Est GFR (Non-African American) 86.8 ml/min
[2024-05-07 07:12] VITALS: BP 147/82; PULSE 55; TEMP 97.7; O2SAT 95
--- NOTE | 2024-05-07 12:35 | Surgery Progress Note ---
Date of Service May 07, 2024 Assessment & Plan (1) Small intestine obstruction: Plan: resolved + return of bowel function and no pain with advanced diet plan; okay from surgical standpoint for discharge low fiber diet for 1-2 weeks smaller more frequent meals and chewing food well advised. Discussed with Dr. Baker who agrees with above. Admission and Anticipated Discharge Date Admission Date: May 02, 2024 Subjective feeling good no abdominal pain having bowel movements and passing gas tolerating low fiber diet Physical Exam Constitutional: WD/WN, vitals as above cooperative and comfortable; no acute distress and not ill appearing Gastrointestinal (Abdomen): Inspection/Auscultation: abdomen normal to inspection, normal bowel sounds and + abdominal surgical scar; abdomen not diste nded Percussion/Palpation: abdomen soft; abdomen nontender, no guarding and abdomen not rigid Skin: no rashes, warm and dry Psychiatric: A+Ox3, euthymic affect Results & Data Vital Signs (Past 12 Hours) Vital Signs Temp Pulse Resp BP Pulse Ox O2 Del Method 05/07/24 07:10 36.5 C 55 L 16 147/82 H 95 Room Air Laboratory Results 05/07/24 05/06/24 Range/Units 06:15 14:40 WBC 5.48 (4.8-10.8) K/ul RBC 4.14 L (4.70-6.10) M/uL Hgb 13.2 L (14.0-18.0) g/dl Hct 38.9 L (42.0-52.0) % MCV 94.0 (80.0-100.0) fL MCH 31.9 (25.0-34.0) pg MCHC 33.9 (32.0-36.0) g/dL RDW Std Deviation 45.1 (36.4-46.3) fL RDW Coeff of Khris 13.1 (11.5-14.5) % Plt Count 156 (130-400) K/uL MPV 10.9 (9.4-12.4) fL Sodium 140 138 (136-145) mmol/L Potassium 4.0 4.0 (3.5-5.1) mmol/L Chloride 108 H 109 H (98-107) mmol/L Carbon Dioxide 28 26 (21-32) mmol/L Anion Gap 4 3 (3-11) BUN 5 L 9 (6-23) mg/dl Creatinine 0.76 0.53 L (0.6-1.4) mg/dl Est Cr Clr Drug Dosing 71.1 102.0 ml/min Est GFR ( Amer) 100.6 116.6 ml/min Est GFR (Non-Af Amer) 86.8 100.6 ml/min BUN/Creatinine Ratio 6.6 L 17.0 (10-20) Glucose 97 123 H (70-99(Fasting)) mg/dl Calcium 8.2 L 8.3 L (8.6-10.3) mg/dl
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
== END 2024-05-07 14:22 | disposition home or self-care (01) | DRG 389 ==
LOC: ED 14:16 → 3N 16:48 → SUATTDRO 16:48 → 3N 19:50
DX: E78.5 Hyperlipidemia, unspecified; N17.9 Acute kidney failure, unspecified; K91.30 Postprocedural intestinal obstruction, unspecified as to partial versus complete; K21.9 Gastro-esophageal reflux disease without esophagitis